=== PATIENT | female | born 1930 | race Caucasian/White ===

== ENCOUNTER 2017-07-01 08:59 | Inpatient (IN) | payer OTHER ==
--- NOTE | 2017-07-01 09:36 | CPEKG ---
Heart Rate: 90 RR Interval: 667 P-R Interval: 156 QRSD Interval: 80 QT Interval: 392 QTC Interval: 480 P [place]: 70 QRS [place]: 21 T Wave [place]: 55 EKG Severity - OTHERWISE NORMAL ECG - EKG Impression: SINUS RHYTHM EKG Impression: LOW VOLTAGE IN FRONTAL LEADS Electronically Signed By: Jesscia Barriga 01-Jul-2017 15:02:57
[2017-07-01 09:39] LABS: PLATELET COUNT 358 10^3/uL (150-400)
--- NOTE | 2017-07-01 09:48 | EDPHY ---
H & P Stated Complaint: POSSIBLE GI BLEED Time Seen by Provider: 07/01/17 09:06 HPI/ROS: CHIEF COMPLAINT: Bloody stool HISTORY OF PRESENT ILLNESS: 87-year-old female with Crohn's disease presents with bright red blood per rectum. This morning she awoke and there was large amount of bloody stool in her bed. She got up to the bathroom, but was incontinent of stool and needed to get back in bed because of dizziness. She called 911 and on their arrival, there was a large amount of blood in her bedroom and bathroom. She was also hypoxic on their arrival, which improved after a duoneb. She denies abdominal pain, vomiting, shortness of breath or chest pain. No prior history of GI hemorrhage. REVIEW OF SYSTEMS: complete 10 point ROS negative except at noted in the HPI - Personal History Current Tetanus Diphtheria and Acellular Pertussis (TDAP): Yes - Medical/Surgical History Hx Asthma: No Hx Chronic Respiratory Disease: No Hx Diabetes: No Hx Cardiac Disease: No Hx Renal Disease: No Hx Cirrhosis: No Hx Alcoholism: No Hx HIV/AIDS: No Hx Splenectomy or Spleen Trauma: No Other PMH: Past medical history: Right hip replacement, Crohn's disease, appy, mode, hyst, cornea replacement - Social History Smoking Status: Light smoker - Physical Exam Exam: General Appearance: Alert, pleasant Eyes: Pupils equal and round, no conjunctival pallor or injection ENT, Mouth: Mucous membranes moist Neck: Normal inspection Respiratory: Lungs are clear to auscultation Cardiovascular: Regular rate and rhythm Gastrointestinal: Abdomen is soft and nontender Rectal: dark red blood present Neurological: A&O, nonfocal, normal gait Skin: Warm and dry Extremities: Normal inspection Psychiatric: Mood and affect normal Constitutional: Initial Vital Signs Temperature (C) 36.9 C 07/01/17 09:13 Heart Rate 90 07/01/17 09:13 Respiratory Rate 18 07/01/17 09:13 Blood Pressure 120/64 07/01/17 09:13 O2 Sat (%) 97 07/01/17 09:13 O2 Delivery Mode Room Air Allergies/Adverse Reactions: clarithromycin [From Biaxin] Allergy (Severe, Verified 07/01/17 09:13) doxycycline Allergy (Severe, Verified 07/01/17 09:13) erythromycin base [Erythromycin Base] Allergy (Severe, Verified 07/01/17 09:13) levofloxacin [From Levaquin] Allergy (Severe, Verified 07/01/17 09:13) metronidazole Allergy (Severe, Verified 07/01/17 09:13) Penicillins Allergy (Severe, Verified 07/01/17 09:13) Quinolones Allergy (Severe, Verified 07/01/17 09:13) Sulfa (Sulfonamide Antibiotics) Allergy (Severe, Verified 07/01/17 09:13) Home Medications: Medication Instructions Recorded Acetaminophen [Tylenol ES 500 mg 1,000 mg PO TID 07/01/17 (*)] Albuterol [Proventil Inhaler HFA 2 puffs IH QID PRN 07/01/17 (*)] Carbidopa/Levo Cr 50/200Mg 0.5 - 1 tab PO DAILY@199907/01/17 [SINEMET CR 50/200 MG (*)] Carbidopa/Levo Cr 50/200Mg 0.5 - 1 tab PO TID PRN 07/01/17 [SINEMET CR 50/200 MG (*)] Multivitamins [Multivitamin (*)] 1 each PO DAILY 07/01/17 Pantoprazole Sodium [Protonix 40mg 40 mg PO BID #60 tab 07/04/17 (*)] Medical Decision Making - Diagnostics EKG Interpretation: EKG interpreted by me reveals normal sinus rhythm, no ST or T segment changes. Interpretation: Normal EKG ED Course/Re-evaluation: This patient presents with GI hemorrhage with an initial hematocrit of 23. Initial vital signs unremarkable. Prior hematocrit 34. Packed red blood cells 1 unit ordered. IV normal saline 500 mL and Protonix 80mg IV given. The hospitalist service was consulted for admission. Dr. Turk consulted and will see the pt. No rectal bleeding/BM while in the ED. Vital signs remained WNL. Old medical records ordered from [facility]. Transported to floor in stable condition. Differential Diagnosis: includes though not limited to upper GI bleed, such as PUD, gastritis, varices; lower GI bleed related to Crohns, diverticulosis, AVM, tumor - Data Points Laboratory Results: Laboratory Results 07/01/17 09:15 07/01/17 09:15 Medications Given: Discontinued Medications Acetaminophen (Tylenol) 650 mg PO Q4HRS PRN PRN Reason: Pain, Mild/Fever, Can Take PO Stop: 12/28/17 15:15 Last Admin: 07/03/17 05:22 Dose: 650 mg Acetaminophen (Tylenol) 1,000 mg PO TID DOMONIQUE Stop: 12/30/17 08:59 Last Admin: 07/04/17 07:50 Dose: 1,000 mg Carbidopa/Levodopa (Sinemet Cr 50/200) 0.5 tab PO DAILY@2000 DOMONIQUE Stop: 12/28/17 19:59 Last Admin: 07/03/17 21:05 Dose: 0.5 tab Carbidopa/Levodopa (Sinemet Cr 50/200) 0.5 tab PO TID PRN PRN Reason: RESTLESS LEG SYMPTOMS Stop: 12/28/17 15:13 Last Admin: 07/04/17 07:12 Dose: 0.5 tab Sodium Chloride (Ns) 500 mls @ 1,000 mls/hr IV EDNOW ONE PRN Reason: Protocol Stop: 07/01/17 10:19 Last Admin: 07/01/17 10:02 Dose: 500 mls Melatonin (Melatonin) 3 - 6 mg PO HS PRN PRN Reason: Sleep/Insomnia Stop: 12/28/17 22:24 Last Admin: 07/03/17 21:06 Dose: 6 mg Miscellaneous Information (Patch Removal) 1 ea TD DAILY21 DOMONIQUE Stop: 12/30/17 20:59 Last Admin: 07/03/17 22:51 Dose: Not Given Miscellaneous Medication (Icy Hot Lidocaine/Menthol 4%/1% Patch) 1 patch TD DAILY DOMONIQUE Stop: 12/30/17 11:14 Last Admin: 07/04/17 11:13 Dose: Not Given Multivitamins (Tab-A-Carolyn) 1 each PO DAILY DOMONIQUE Stop: 12/29/17 08:59 Last Admin: 07/04/17 07:52 Dose: 1 each Ondansetron HCl (Zofran Odt) 4 mg PO Q4HRS PRN PRN Reason: Nausea/Vomiting, Use 1st Stop: 12/28/17 15:15 Last Admin: 07/03/17 06:45 Dose: 4 mg Pantoprazole Sodium (Protonix) 80 mg IVP EDNOW ONE Stop: 07/01/17 09:50 Last Admin: 07/01/17 10:02 Dose: 80 mg Pantoprazole Sodium (Protonix) 40 mg IVP BID DOMONIQUE Stop: 12/29/17 10:14 Last Admin: 07/03/17 08:10 Dose: 40 mg Pantoprazole Sodium (Protonix) 40 mg PO BID DOMONIQUE Stop: 12/30/17 20:59 Last Admin: 07/04/17 07:52 Dose: 40 mg Polyethylene Glycol/Electrolytes (Gavilyte - G) 4,000 ml PO ONCE ONE Stop: 07/01/17 13:45 Last Admin: 07/01/17 14:22 Dose: 4,000 ml Simethicone (Mylicon) 80 mg PO [facility] PRN PRN Reason: Gas Stop: 12/30/17 18:59 Last Admin: 07/03/17 15:14 Dose: 80 mg Departure - Departure Disposition: [facility] Acute Clinical Impression: Severe anemia Gastrointestinal hemorrhage Qualifiers: GI bleed type/associated pathology: melena Qualified Code(s): K92.1 - Melena Condition: Good
[2017-07-01] MEDS ORDERED: PANTOPRAZOLE SODIUM 40 MG VIAL IVP ONE (09:49)
[2017-07-01] MEDS ORDERED: NS 500 ML IV ONE (09:50)
[2017-07-01 11:59] LABS: INR 1.14 (0.83-1.16); PROTIME(PATIENT) 14.8 SEC (12.0-15.0)
--- NOTE | 2017-07-01 12:04 | ASMTCMCOM ---
CM Note CM Note Notes: Pt presented to the ED via EMS from home after having incontinence of stool and large amounts of bright red blood in her stool. Pt admitted for severe anemia, GI hemorrhage. Pt received a transfusion in ED. EMS expressed concerns to the ED RN of pt's ability to return home safely. Pt lives alone in a condo and has a son, Sterling Mcgee ([phone]) who lives in [place]. Sterling is pt's [employer] [employer]. This CM spoke with Sterling over the phone at bedside and provided updated status and plan for admission. Pt also has two daughters but they do not live in [place]. Pt also has a friend, Josephine Ramirez ([phone]), who lives in the condo above her at their building and helps out with patient a lot. Josephine is also very concerned about pt returning home without additional help. Pt states she is normally rather independent in her ADLs; pt uses a walker. Pt has non-skilled home caregivers who stop by on Mondays and Fridays; they provide housekeeping and take pt on errands. Pt can't remember the name of the caregiver agency. Pt has a medical alert necklace that alerts Josephine and Sterling (in addition to calling 911) when pt presses it. Pt states she has not had skilled HC in the past. Pt's PCP is Dr. Arabella Jenkins through [facility]. Pt has a history of Crohns and had a small bowel resection in 2016 w/ [facility] and pt had been discharged to [facility]. Pt states she didn't have a good experience at [facility] and would not want to go back there if a SNF rehab stay is recommended during this admission. Pt's past medical records were obtained from [facility] and [facility] and should be in pt's chart. Exact DC needs unknown at this time. CM to follow. Date Signed: 07/01/2017 12:04 PM Electronically Signed By:Lo Olivas RN
[2017-07-01] MEDS ORDERED: PEG 3350/NA SULF,BICARB,CL/KCL (GAVILYTE-G) 4000 ML BTL PO ONE (13:44)
--- NOTE | 2017-07-01 14:48 | GCON ---
[f rep st] CONSULTATION DATE OF CONSULTATION: 07/01/2017 CHIEF COMPLAINT: GI bleed. HISTORY OF PRESENT ILLNESS: I am asked to see this patient in consultation by Dr. Barriga for chief com plaint of GI bleed. The patient is an 87-year-old with complex past medical history. She is a very poor historian, likely has some underlying dementia, is unclear about all of her past medical history , but family member is also present to provide some information. Apparently she holds the diagnosis of Crohn disease, is unclear if this involves the large or small intestine, but apparently she did u ndergo bowel resection in November 2016 that apparently involved her ileum and 10 cm of intestine, but she is not sure if it was small or large bowel. 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 It is unclear if this was resected for cure; however, there is apparently no other further treatment going on. Patient does have baseline diarrhea, about 1 loose stool morning, which she will occasionally take Imodium. She is unaware of any blood in her stools or black stools. No significa nt abdominal pain, but this morning she awoken and was incontinent of large amount of stool. She kuldeep led 911. They state that the stool looked bloody; however, it is unclear if this was bright red bloo d or black stools as no witnesses were present. The patient denies nausea, vomiting, hematemesis. H as no known history of prior peptic ulcer disease; however, she was admitted in 2012 here at [facility] with a GI bleed. She underwent an upper and lower endoscopy. Upper endoscopy was apparently normal. Colonoscopy revealed diverticula which was presumably source of her bleeding. ALLERGIES: Patient reports allergies to erythromycin, doxycycline, Levaquin, metronidazole, penicil christopher, quinolones, sulfa. MEDICATIONS: Active medications, incomplete list, but patient apparently takes Sinemet, albuterol in halers, Tylenol, multivitamins, unclear if she takes any other additional medicines. PAST MEDICAL HISTORY: 1. Crohn disease, but unclear if this involves large or small intestine. 2. 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 3. Other past medical history is incomplete as patient is poor historian. FAMILY HISTORY: Patient denies family history of Crohn's or colon cancer. SOCIAL HISTORY: She denies alcohol use. REVIEW OF SYSTEMS: I have performed a complete review of systems which is negative except for the pe rtinent positives and negatives noted above in HPI. PHYSICAL EXAM: VITAL SIGNS: Afebrile at 36.9, BP 108/57, pulse 90. GENERAL: She is alert and orie nted. EYES: No scleral icterus. HEENT: No oral lesions. CARDIOVASCULAR: Regular rate and rhythm . CHEST: Clear to auscultation. ABDOMEN: Increased bowel sounds, slightly distended, but soft abdo men without rebound. No masses. Nontender. NEUROLOGICAL: Nonfocal. SKIN: No rashes. LABORATORY DATA: Shows a BUN of 31 with creatinine of 0.8, hematocrit is 23.7 with hemoglobin of 7.3 , white count 11, and platelets are normal. Prothrombin time is normal. ASSESSMENT: Patient with gastrointestinal bleed, although difficult to assess if this is an upper or lower bleed. However, I would be more suspicious for this being a lower GI bleed. Concerns being f or her history of Crohn disease and recent resection. It could be anastomotic ulcer versus active Cr ohn disease or cancer. Also, consider diverticular bleed given her last colonoscopy. Would give cons ideration to a possible upper GI bleed, although I think less likely. Patient is currently hemodynam ically stable although overall would be high risk for endoscopic procedures given her advanced age an d medication use. I have discussed with the patient and her daughter about risks and benefits of an upper and lower endoscopy to try to identify the source of bleeding, possible treatment versus conser vative measures with IV fluids, transfusion and to monitor. Patient has decided to proceed with endo scopic evaluation. PLAN: 1. Will try to obtain records from [place]. 2. Will prep for upper and lower endoscopy in the morning, aim to do this with anesthesia. 3. Transfuse and to monitor. May need to consider urgent evaluation if her clinical status should c hange. . /[id number]/MODL
[2017-07-01] MEDS ORDERED: ONDANSETRON 4 MG/2 ML VIAL IVP PRN (15:16)
[2017-07-01] MEDS ORDERED: ONDANSETRON DISINTEGRATING 4 MG TAB PO PRN (15:16)
--- NOTE | 2017-07-01 15:41 | PDGENHP ---
History and Physical - Chief Complaint BLOOD STOOL - History of Present Illness 87-year-old female with Crohn's disease presents with bright red blood per rectum. This morning she awoke and there was large amount of bloody stool in her bed. She got up to the bathroom, but was incontinent of stool and needed to get back in bed because of dizziness. She called 911 and on their arrival, there was a large amount of blood in her bedroom. She was also hypoxic on their arrival. DuoNeb given with relief in hypoxia. She denies abdominal pain , vomiting, shortness of breath or chest pain. No prior history of GI hemorrhage. Denies abd pain, n/v/d, cp, sob Vital signs are reassuring PMH/PSH: Right hip replacement, Crohn's disease, appy, mode, hyst, cornea replacement SocHx: Daily ETOH, daily Tobacco FmHx: NC Hgb: 7.3 History Information - Allergies/Home Medication List Allergies/Adverse Reactions: clarithromycin [From Biaxin] Allergy (Severe, Verified 07/01/17 09:13) doxycycline Allergy (Severe, Verified 07/01/17 09:13) erythromycin base [Erythromycin Base] Allergy (Severe, Verified 07/01/17 09:13) levofloxacin [From Levaquin] Allergy (Severe, Verified 07/01/17 09:13) metronidazole Allergy (Severe, Verified 07/01/17 09:13) Penicillins Allergy (Severe, Verified 07/01/17 09:13) Quinolones Allergy (Severe, Verified 07/01/17 09:13) Sulfa (Sulfonamide Antibiotics) Allergy (Severe, Verified 07/01/17 09:13) Home Medications: Acetaminophen [Tylenol ES 500 mg (*)] 1,000 mg PO TID 07/01/17 [Last Taken Unknown] Albuterol [Proventil Inhaler HFA (*)] 2 puffs IH QID PRN 07/01/17 [Last Taken Unknown] Carbidopa/Levo Cr 50/200Mg [SINEMET CR 50/200 MG (*)] 0.5 - 1 tab PO DAILY@199907/01/17 [Last Taken Unknown] Carbidopa/Levo Cr 50/200Mg [SINEMET CR 50/200 MG (*)] 0.5 - 1 tab PO TID PRN [Last Taken Unknown] Multivitamins [Multivitamin (*)] 1 each PO DAILY 07/01/17 [Last Taken Unknown] I have personally reviewed and updated: medical history, social history - Social History Smoking Status: Light smoker Review of Systems Review of Systems: ROS: 10pt was reviewed & negative except for what was stated in HPI & below Physical Exam Physical Exam: Temp Pulse Resp BP Pulse Ox 36.8 C 89 16 142/84 H 94 07/01/17 15:10 07/01/17 15:10 07/01/17 15:10 07/01/17 15:10 07/01/17 15:10 Constitutional: no apparent distress Eyes: PERRL, EOMI Ears, Nose, Mouth, Throat: moist mucous membranes, hearing normal Cardiovascular: regular rate and rhythym, No edema Respiratory: no respiratory distress, no rales or rhonchi, clear to auscultation Gastrointestinal: normoactive bowel sounds Genitourinary: no bladder fullness Skin: warm Musculoskeletal: full muscle strength Neurologic: AAOx3 Psychiatric: interacting appropriately, not anxious, not encephalopathic Lymph, Heme, Immunologic: petechiae Lab Data & Imaging Review 07/01/17 09:15 07/01/17 09:15 WBC 11.29 10^3/uL (3.80-9.50) H 07/01/17 09:15 RBC 2.41 10^6/uL (4.18-5.33) L 07/01/17 09:15 Hgb 7.3 g/dL (12.6-16.3) L 07/01/17 09:15 Hct 23.7 % (38.0-47.0) L 07/01/17 09:15 MCV 98.3 fL (81.5-99.8) 07/01/17 09:15 MCH 30.3 pg (27.9-34.1) 07/01/17 09:15 MCHC 30.8 g/dL (32.4-36.7) L 07/01/17 09:15 RDW 15.8 % (11.5-15.2) H 07/01/17 09:15 Plt Count 358 10^3/uL (150-400) 07/01/17 09:15 MPV 9.2 fL (8.7-11.7) 07/01/17 09:15 Neut % (Auto) 89.4 % (39.3-74.2) H 07/01/17 09:15 Lymph % (Auto) 5.6 % (15.0-45.0) L 07/01/17 09:15 [place] % (Auto) 4.0 % (4.5-13.0) L 07/01/17 09:15 Eos % (Auto) 0.3 % (0.6-7.6) L 07/01/17 09:15 Baso % (Auto) 0.3 % (0.3-1.7) 07/01/17 09:15 Nucleat RBC Rel Count 0.0 % (0.0-0.2) 07/01/17 09:15 Absolute Neuts (auto) 10.11 10^3/uL (1.70-6.50) H 07/01/17 09:15 Absolute Lymphs (auto) 0.63 10^3/uL (1.00-3.00) L 07/01/17 09:15 Absolute Monos (auto) 0.45 10^3/uL (0.30-0.80) 07/01/17 09:15 Absolute Eos (auto) 0.03 10^3/uL (0.03-0.40) 07/01/17 09:15 Absolute Basos (auto) 0.03 10^3/uL (0.02-0.10) 07/01/17 09:15 Absolute Nucleated RBC 0.00 10^3/uL (0-0.01) 07/01/17 09:15 Immature Gran % 0.4 % (0.0-1.1) 07/01/17 09:15 Immature Gran # 0.04 10^3/uL (0.00-0.10) 07/01/17 09:15 PT 14.8 SEC (12.0-15.0) 07/01/17 09:30 INR 1.14 (0.83-1.16) 07/01/17 09:30 APTT 33.1 SEC (23.0-38.0) 07/01/17 09:30 Sodium 139 mEq/L (135-145) 07/01/17 09:15 Potassium 4.7 mEq/L (3.3-5.0) 07/01/17 09:15 Chloride 101 mEq/L (97-110) 07/01/17 09:15 Carbon Dioxide 30 mEq/l (22-31) 07/01/17 09:15 Anion Gap 8 mEq/L (8-16) 07/01/17 09:15 BUN 31 mg/dL (7-23) H 07/01/17 09:15 Creatinine 0.6 mg/dL (0.6-1.0) 07/01/17 09:15 Estimated GFR > 60 07/01/17 09:15 Glucose 73 mg/dL (70-100) 07/01/17 09:15 Calcium 8.1 mg/dL (8.5-10.4) L 07/01/17 09:15 Stool Occult Bld Scrn POSITIVE (NEGATIVE) H 07/01/17 09:40 Patient ABO/Rh A POSITIVE 07/01/17 09:15 Antibody Screen NEGATIVE 07/01/17 09:15 Crossmatch IS Only See Detail 07/01/17 09:15 Assessment & Plan Assessment: Gastrointestinal hemorrhage ABLA due to GIB Hypoxemia, resolved Plan: admit PRBC transfusion PPI upper and lower endoscopy tomorrow CLD for now, NPO at midnight GI is following SCD's
[2017-07-01] MEDS ORDERED: ALBUTEROL 3 ML DEYVIAL IH PRN (15:43)
[2017-07-01] MEDS: ACETAMINOPHEN 325 MG TAB PO PRN ×2 (17:00→22:30)
--- NOTE | 2017-07-01 17:02 | PDMN ---
Medical Necessity Medical necessity: C/M review: Patient meets INPT criteria under M-180 Gastrointestinal Bleeding, Upper, M-182 Gastrointestinal Bleeding, Lower: Acute gastrointestinal hemorrhage, patient presents with bright red blood per rectum, anemia blood loss due to GI bleed, hypoxemia-resolved, WBC 11.29, Hgb 7.3, Hct 23.7, stool occult blood positive, requiring IV Protonix in ED, GI consult, 1 unit PRBCs this far, planned 07/02/2017 upper and lower endoscopy, ongoing pulse oximetry, close monitoring, CBC monitoring, comorbid patient awoke and there was a large amount of bloody stool in patient's bed, patient got up to bathroom, was incontinent of stool, there was a large amount of blood in patient bedroom upon EMS arrival at patient's home just prior to this admission, history of Chron's disease, daily tobacco use, daily alcohol use, MD anticipates > 2 MN LOS for ongoing med nec for eval ad TX of above. Patient is Medicare Advantage which follows guidelines CMS puts forth.
[2017-07-01] MEDS: CARBIDOPA/LEVO CR 50 MG/200 MG TAB PO SCH (19:51)
[2017-07-01] MEDS: MELATONIN 3 MG TAB PO PRN (22:30)
[2017-07-02 06:08] LABS: PLATELET COUNT 273 10^3/uL (150-400)
[2017-07-02] MEDS: MULTIVITAMINS 1 EACH TAB PO SCH (07:48)
--- NOTE | 2017-07-02 08:12 | HOSPPROG ---
Hospitalist Progress Note Assessment/Plan: 87F PMH Crohn's disease, current tobacco abuse, previous colon CA s/p resection , presented to ED for large volume blood stools. Upon arrival of EMS, she was found to be hypoxemic. 1st encounter with patient. Chart reviewed. #. GIB: prepped for upper and lower endoscopy today - results pending #. ABLA: 1 unit thus far transfused will order another unit as HB is 6.7 today #. ? Parkinson - patient denies though she takes Sinemet #. tobacco abuse - will provide nicotine replacement as needed #. hypoxemia: satting OK currently on RA #. Diet: clear liquid and ADAT #. Inpt status for acute GIB with risk of recurrence and need for transfusion. Awaiting PT/OT evals. Objective: Vital Signs Temp Pulse Resp BP Pulse Ox 98.1 F 79 14 143/78 H 95 07/02/17 04:00 07/02/17 04:00 07/02/17 04:00 07/02/17 04:00 07/02/17 04:00 Laboratory Results 07/02/17 04:13 07/02/17 04:13 07/01/17 07/02/17 07/03/17 05:59 05:59 05:59 Intake Total 1000 Balance 1000 PT 14.8 SEC (12.0-15.0) 07/01/17 09:30 INR 1.14 (0.83-1.16) 07/01/17 09:30 - Physical Exam Constitutional: no apparent distress, appears nourished Eyes: anicteric sclera Cardiovascular: regular rate and rhythym, no murmur, rub, or gallop Respiratory: no respiratory distress Gastrointestinal: normoactive bowel sounds, soft, non-tender abdomen Genitourinary: No quinteros in urethra Skin: warm, normal color Neurologic: AAOx3 Psychiatric: interacting appropriately ICD10 Worksheet Patient Problems: Problems Problem Status Onset Gastrointestinal hemorrhage Acute Severe anemia Acute Anemia Active Hyponatremia Active Lower gastrointestinal hemorrhage Active Periprosthetic fracture around internal prosthetic right hip joint Acute
[2017-07-02] MEDS ORDERED: EPINEPHrine 1 MG/ML INJ ONE (08:54)
--- NOTE | 2017-07-02 09:07 | PDANEPAE ---
ANE History of Present Illness BRBPR ANE Past Medical History - Cardiovascular History Hx Hypertension: No Hx Arrhythmias: No Hx Chest Pain: No Hx Coronary Artery / Peripheral Vascular Disease: No Hx CHF / Valvular Disease: No Hx Palpitations: No - Pulmonary History Hx COPD: No Hx Asthma/Reactive Airway Disease: No Hx Recent Upper Respiratory Infection: No Hx Oxygen in Use at Home: No Hx Sleep Apnea: No Sleep Apnea Screening Result - Last Documented: Negative Pulmonary History Comment: tobacco abuse - Endocrine History Hx Diabetes: No Hypothyroid: No Hyperthyroid: No - Renal History Hx Renal Disorders: No - Liver History Hx Hepatic Disorders: No - Neurological & Psychiatric Hx Neurological / Psychiatric History Comment: parkinsons - Chronic Pain History Chronic Pain: No ANE Review of Systems Review of systems is: negative Review of Systems: - Exercise capacity Exercise capacity: >=4 METS ANE Patient History - Allergies Allergies/Adverse Reactions: clarithromycin [From Biaxin] Allergy (Severe, Verified 07/01/17 09:13) doxycycline Allergy (Severe, Verified 07/01/17 09:13) erythromycin base [Erythromycin Base] Allergy (Severe, Verified 07/01/17 09:13) levofloxacin [From Levaquin] Allergy (Severe, Verified 07/01/17 09:13) metronidazole Allergy (Severe, Verified 07/01/17 09:13) Penicillins Allergy (Severe, Verified 07/01/17 09:13) Quinolones Allergy (Severe, Verified 07/01/17 09:13) Sulfa (Sulfonamide Antibiotics) Allergy (Severe, Verified 07/01/17 09:13) - Home Medications Home Medications: Acetaminophen [Tylenol ES 500 mg (*)] 1,000 mg PO TID 07/01/17 [Last Taken Unknown] Albuterol [Proventil Inhaler HFA (*)] 2 puffs IH QID PRN 07/01/17 [Last Taken Unknown] Carbidopa/Levo Cr 50/200Mg [SINEMET CR 50/200 MG (*)] 0.5 - 1 tab PO DAILY@199907/01/17 [Last Taken Unknown] Carbidopa/Levo Cr 50/200Mg [SINEMET CR 50/200 MG (*)] 0.5 - 1 tab PO TID PRN [Last Taken Unknown] Multivitamins [Multivitamin (*)] 1 each PO DAILY 07/01/17 [Last Taken Unknown] - NPO status NPO Status: no food or drink >8 hours NPO Since - Liquids (Date): 07/02/17 NPO Since - Liquids (Time): 00:00 NPO Since - Solids (Date): 06/30/17 NPO Since - Solids (Time): 12:00 - Anes Hx Anes Hx: no prior problems - Smoking Hx Smoking Status: Light smoker Marijuana use: No - Alcohol Use Alcohol Use: None - Family Anes Hx Family Anes Hx: none ANE Labs/Vital Signs - Labs Result Diagrams: 07/02/17 04:13 07/02/17 04:13 - Vital Signs Blood Pressure: 143/76 Heart Rate: 80 Respiratory Rate: 16 O2 Sat (%): 90 Height: 162.56 cm Weight: 49.895 kg ANE Physical Exam - Airway Neck exam: decreased ROM Mallampati Score: Class 2 Mouth exam: normal dental/mouth exam - Pulmonary Pulmonary: no respiratory distress - Cardiovascular Cardiovascular: regular rate and rhythym - ASA Status ASA Status: III ANE Anesthesia Plan Anesthesia Plan: GA with mask
[2017-07-02] MEDS ORDERED: PROPOFOL/EMULSION 500 MG/50 ML BOTTLE IV ONE (09:10)
[2017-07-02] MEDS ORDERED: LIDOCAINE 2% 5 ML SDV ONE (09:10)
[2017-07-02] MEDS ORDERED: ALBUTEROL 3 ML DEYVIAL IH PRN (09:51)
[2017-07-02] MEDS ORDERED: NALOXONE HCL 0.4 MG/ML INJ IVP PRN (09:51)
[2017-07-02] MEDS ORDERED: ONDANSETRON 4 MG/2 ML VIAL IVP PRN (09:51)
--- NOTE | 2017-07-02 09:52 | POSTANESTH ---
Post Anesthetic Evaluation Cardiovascular Status: Similar to Pre-Op Cond Respiratory Status: Normal, Stable Level of Consciousness/Mental Status: Mildly Sleepy, Arousable Pain Control: Adequate, Prn Tx Ordered Nausea/Vomiting Control: Adequate, Prn Tx Ordered Complications Possibly Related to Anesthesia: None Noted
[2017-07-02] MEDS: PANTOPRAZOLE SODIUM 40 MG VIAL IVP SCH ×2 (10:35→20:35)
[2017-07-02] MEDS: ACETAMINOPHEN 325 MG TAB PO PRN ×3 (10:36→21:30)
[2017-07-02] MEDS: CARBIDOPA/LEVO CR 50 MG/200 MG TAB PO SCH (20:28)
[2017-07-02] MEDS: MELATONIN 3 MG TAB PO PRN (21:33)
[2017-07-02] MEDS: CARBIDOPA/LEVO CR 50 MG/200 MG TAB PO PRN (21:33)
[2017-07-03] MEDS: CARBIDOPA/LEVO CR 50 MG/200 MG TAB PO PRN ×3 (04:18→17:23)
[2017-07-03 04:48] LABS: PLATELET COUNT 241 10^3/uL (150-400)
[2017-07-03] MEDS: ACETAMINOPHEN 325 MG TAB PO PRN (05:22)
[2017-07-03] MEDS: PANTOPRAZOLE SODIUM 40 MG VIAL IVP SCH (08:10)
--- NOTE | 2017-07-03 08:20 | SOAPPROG ---
SOAP Progress Note Assessment/Plan: Assessment: 1. GIB from atypical gastric ulcer. H. pylori negative. No e/o rebleeding 2. Diarrhea baseline suspect from partial colectomy no active Crohn's disease seen 3. Abd pain suspect chronic pain. Rec monitor to assure no rebleeding Plan: Monitor H+H until stable PPI IV for now can change to Po PPI BID once taking POs well No NSAIDS Consider GI cocktail for pain If e/o rebleeding consider IR embolization as ulcer would not be easily amenable to endoscopic treatment Consider CT scan of abd if pain not better 07/03/17 08:16 Subjective: CC melena Pt now with normal bm no blood no melena She c/o nausea and abd pain. Pt has h/o abd pain unclear if this is new pain or baseline symptoms Objective: Vital Signs Temp Pulse Resp BP Pulse Ox 36.7 C 71 15 152/81 H 91 L 07/03/17 07:40 07/03/17 07:40 07/03/17 07:40 07/03/17 07:40 07/03/17 07:40 Laboratory Results 07/03/17 04:25 07/02/17 04:13 07/02/17 07/03/17 07/04/17 05:59 05:59 05:59 Intake Total 1000 1075 Balance 1000 1075 PT 14.8 SEC (12.0-15.0) 07/01/17 09:30 INR 1.14 (0.83-1.16) 07/01/17 09:30 ICD10 Worksheet Patient Problems: Problems Problem Status Onset Lower gastrointestinal hemorrhage Active Hyponatremia Active Anemia Active Periprosthetic fracture around internal prosthetic right hip joint Acute Gastrointestinal hemorrhage Acute Severe anemia Acute
[2017-07-03] MEDS ORDERED: ALBUTEROL 60 PUFFS/8 GM MDI IH PRN (08:35)
[2017-07-03] MEDS: MULTIVITAMINS 1 EACH TAB PO SCH (09:33)
[2017-07-03] MEDS: ACETAMINOPHEN 500 MG TAB PO SCH ×3 (10:42→21:05)
[2017-07-03] MEDS: LIDOCAINE 4%/MENTHOL 1% PATCH TD SCH ×2 (11:07→14:43)
--- NOTE | 2017-07-03 13:19 | HOSPPROG ---
Hospitalist Progress Note Assessment/Plan: 87F PMH Crohn's disease, current tobacco abuse, previous colon CA s/p resection , presented to ED for large volume blood stools. Upon arrival of EMS, she was found to be hypoxemic. 1st encounter with patient. Chart reviewed. #. GIB: upper and lower endoscopy performed - atypical gastric ulcer noted - no further signs of bleeding #. ABLA: -2 unit thus far transfused -h/h stable #. ? Parkinson - patient denies though she takes Sinemet #Abd pain -per pt same as chronic gas pain -watch, will get CT if worse #. tobacco abuse - will provide nicotine replacement as needed #. hypoxemia: satting OK currently on RA #. Diet: regular #. Inpt status for acute GIB with risk of recurrence and need for transfusion. -cont PT/OT -monitor overnight -watch for reoccurring bleeding Subjective: Up in chair. Wants to go home. Feels well. Family at bedside. Objective: Vital Signs Temp Pulse Resp BP Pulse Ox 36.7 C 77 16 101/77 90 L 07/03/17 11:00 07/03/17 11:00 07/03/17 11:00 07/03/17 11:00 07/03/17 11:00 Laboratory Results 07/03/17 04:25 07/02/17 04:13 07/02/17 07/03/17 07/04/17 05:59 05:59 05:59 Intake Total 1000 1075 Balance 1000 1075 PT 14.8 SEC (12.0-15.0) 07/01/17 09:30 INR 1.14 (0.83-1.16) 07/01/17 09:30 - Physical Exam Constitutional: chronically ill appearing, uncomfortable, cachectic Eyes: PERRL, anicteric sclera, EOMI Ears, Nose, Mouth, Throat: moist mucous membranes, hearing normal, ears appear normal Cardiovascular: regular rate and rhythym, No JVD, No edema Respiratory: no respiratory distress, no rales or rhonchi, reduced air movement Gastrointestinal: normoactive bowel sounds, tenderness, No ascites, No guarding Skin: warm, normal color, No mottled Musculoskeletal: normal joint ROM, no joint effusions, generalized weakness Neurologic: AAOx3 Psychiatric: not anxious, not encephalopathic, poor insight, poor memory ICD10 Worksheet Patient Problems: Problems Problem Status Onset Lower gastrointestinal hemorrhage Active Hyponatremia Active Anemia Active Periprosthetic fracture around internal prosthetic right hip joint Acute Gastrointestinal hemorrhage Acute Severe anemia Acute
[2017-07-03] MEDS ORDERED: SIMETHICONE 80 MG TAB CHEW PO PRN (14:51)
--- NOTE | 2017-07-03 16:54 | ASMTCMCOM ---
CM Note CM Note Notes: PT is recommending home vs home care at d/c. Pt still complaining of nausea and abdominal pain. CM will follow for d/c needs. Date Signed: 07/03/2017 04:54 PM Electronically Signed By:LEONEL Orellana
[2017-07-03] MEDS ORDERED: PATCH REMOVAL 1 EA PATCH TD SCH (21:00)
[2017-07-03] MEDS: CARBIDOPA/LEVO CR 50 MG/200 MG TAB PO SCH (21:05)
[2017-07-03] MEDS: MELATONIN 3 MG TAB PO PRN (21:06)
[2017-07-03] MEDS: PANTOPRAZOLE SODIUM 40 MG TAB PO SCH (21:06)
[2017-07-04] MEDS: CARBIDOPA/LEVO CR 50 MG/200 MG TAB PO PRN (07:12)
[2017-07-04 07:26] VITALS: BP 136/72
[2017-07-04] MEDS: ACETAMINOPHEN 500 MG TAB PO SCH (07:50)
[2017-07-04] MEDS: PANTOPRAZOLE SODIUM 40 MG TAB PO SCH (07:52)
[2017-07-04] MEDS: MULTIVITAMINS 1 EACH TAB PO SCH (07:52)
--- NOTE | 2017-07-04 10:18 | SOAPPROG ---
[facility] Progress Note Assessment/Plan: Assessment: 1. GIB from atypical gastric ulcer. H. pylori negative. No e/o rebleeding 2. Abd pain has resolved and stools are back to baseline. Plan: OK to d/c home PPI daily for 12 weeks Await biopsy results Patient should follow up with primary doctors at [place] Will sign off 07/04/17 10:15 Subjective: cc gi bleed No further bleeding abd hicks has resolved Objective: Vital Signs Temp Pulse Resp BP Pulse Ox 36.7 C 91 14 136/72 H 90 L 07/04/17 07:17 07/04/17 07:17 07/04/17 07:17 07/04/17 07:17 07/04/17 07:17 Laboratory Results 07/04/17 09:13 07/02/17 04:13 07/03/17 07/04/17 07/05/17 05:59 05:59 05:59 Intake Total 1075 950 Balance 1075 950 PT 14.8 SEC (12.0-15.0) 07/01/17 09:30 INR 1.14 (0.83-1.16) 07/01/17 09:30 Physical Exam - Physical Exam General Appearance: alert Respiratory: lungs clear Cardiac/Chest: regular rate, rhythm Abdomen: non-tender, soft ICD10 Worksheet Patient Problems: Problems Problem Status Onset Gastrointestinal hemorrhage Acute Severe anemia Acute Anemia Active Hyponatremia Active Lower gastrointestinal hemorrhage Active Periprosthetic fracture around internal prosthetic right hip joint Acute
[2017-07-04] MEDS: LIDOCAINE 4%/MENTHOL 1% PATCH TD SCH (11:13)
--- NOTE | 2017-07-04 12:15 | ASMTCMCOM ---
CM Note CM Note Notes: Pt medically stable for d/c with son support. Pt declines HHC. No CM d/c needs identified. Date Signed: 07/04/2017 12:14 PM Electronically Signed By:LEONEL Wayne
--- NOTE | 2017-07-04 12:15 | GDS ---
[f rep st] DISCHARGE SUMMARY DISCHARGE DIAGNOSES: 1. Gastrointestinal bleed from atypical gastric ulcer. 2. Abdominal pain. 3. Acute blood loss anemia requiring transfusion. 4. Tobacco abuse. PHYSICAL EXAMINATION: GENERAL: The patient is alert. VITAL SIGNS: Afebrile at 36.7, pulse 91, res piratory rate 14, blood pressure is 136/72. She is saturating 90% on room air. I have seen and eval uated the patient on the day of discharge. HOSPITAL COURSE: The patient is an 87-year-old female who presented to the emergency room with blood y stool. She was evaluated and diagnosed with: 1. Gastrointestinal bleed. During this hospitalization, she received a consultation from [facility]. Upper and lower endoscopy were performed, noting an atypical gastric ulcer. She has been st arted on Protonix for this and will continue this for a 12 week course in the outpatient setting, wit h followup of biopsy results with her primary care physician. She has had no further signs of bleedi ng. 2. Acute blood loss anemia. This is in the setting of a gastrointestinal ulcer. She has received 2 units of packed red blood cells during this hospital course and her H and H is stable. 3. Abdominal pain. This is chronic for the patient and is at her baseline. 4. Tobacco abuse. Cessation has been educated. DISPOSITION: The patient will be discharged home independently. Followup will be with her physician at [facility]. PENDING STUDIES: Include biopsies done during endoscopy. DISCHARGE MEDICATIONS: Please refer to EMR form. I have not adjusted the patient's previously presc ribed home medications; however, she has been initiated on Protonix 40 mg twice daily. FOLLOWUP: Will be with Dr. Turk, as well as the patient's primary care physician. I spent greater than 35 minutes in the care, coordination, and management of the patient's dispositio n. /[id number]/MODL
--- NOTE | 2017-07-07 09:56 | GIREPORT ---
[facility] - Endoscopy Department Patient Name: Kiya Pradhan Procedure Date: 07/02/2017 9:27 AM Patient Type: Inpatient Attending MD/ ER Physician: Shell Turk MD Procedure: Colonoscopy Indications: Melena Providers: Shell Turk MD Medicines: Monitored Anesthesia Care Complications: No immediate complications. Description of Procedure: After obtaining informed consent, the scope was passed under direct vis ion. Throughout the procedure, the patient's blood pressure, pulse, and oxyg en saturations were monitored continuously. The Colonoscope with irrigatio n channel was introduced through the anus and advanced to the ileocolonic anastomosis. The colonoscopy was performed with ease. The patient blanca ated the procedure well. The quality of the bowel preparation was adequate. The terminal ileum and the rectum were photographed. Findings: The perianal and digital rectal examinations were normal. Many diverticula were found in the sigmoid colon. There was evidence of a prior end-to-side ileo-colonic anastomosis in t he ascending colon. This was patent and was characterized by healthy appea ring mucosa. Estimated Blood Loss: Estimated blood loss: none. Post Op Diagnosis: - Diverticulosis in the sigmoid colon. - No old blood no active bleeding. - Patent end-to-side ileo-colonic anastomosis, characterized by healthy appearing mucosa. - No specimens collected. Recommendation: - Clear liquid diet. - Return patient to hospital solo for ongoing care. - No repeat colonoscopy due to age. - Thank you for allowing me to participate in the care of your patient. Attending Participation: I personally performed the entire procedure. Shell Turk MD Shell Turk MD 07/02/2017 9:50:18 AM This report has been signed electronicallyShell Turk MD Number of Addenda: 0 Note Initiated On: 07/02/2017 9:27 AM Total Procedure Duration Time 0 hours 6 minutes 19 seconds [email or web address]
--- NOTE | 2017-07-07 09:56 | GIREPORT ---
[facility] - Endoscopy Department Patient Name: Kiya Pradhan Procedure Date: 07/02/2017 8:10 AM Patient Type: Inpatient Attending MD/ ER Physician: Shell Turk MD Procedure: Upper GI endoscopy Indications: Melena Providers: Shell Turk MD Medicines: Monitored Anesthesia Care Complications: No immediate complications. Description of Procedure: After obtaining informed consent, the endoscope was passed under direct vision. Throughout the procedure, the patient's blood pressure, pulse, and oxygen saturations were monitored continuously. The Endoscope was intro duced through the mouth, and advanced to the second part of duodenum. The Endoscope was introduced through the mouth, and advanced to the. The up per GI endoscopy was accomplished without difficulty. The patient tolerated the procedure well. Findings: The esophagus was normal. One non-bleeding cratered gastric ulcer with adherent clot was found in the gastric fundus. The lesion was 15 mm in largest dimension. Biopsies wer e taken with a cold forceps for histology. Estimated blood loss was minim al. A few, non-bleeding erosions were found in the gastric antrum. There we re no stigmata of recent bleeding. The examined duodenum was normal. Estimated Blood Loss: Estimated blood loss was minimal. Post Op Diagnosis: - Normal esophagus. - Non-bleeding gastric ulcer with adherent clot. Biopsied. Ulcer had atypical appearance and is present in unusual location worrisome as pat ient has h/o ilium cancer. Not amenable for endoscopic treatment. - Non-bleeding erosive gastropathy. - Normal examined duodenum. Recommendation: - Await pathology results. - Clear liquid diet. - PPI BID fro 8 weeks. - Monitor H+H and transfuse as needed. - Check H. pylori serology. - Consider IR with embolisation if rebleeding if patient desires aggres sive treatment. - Consider repeat EGD in 3 months with her primary GI doctors at [place] to check heeling if biopsy are benign. - Return patient to hospital solo for ongoing care. - Thank you for allowing me to participate in the care of your patient. Attending Participation: I personally performed the entire procedure. Shell Turk MD Shell Turk MD 07/02/2017 9:50:36 AM This report has been signed electronicallyShell Turk MD Number of Addenda: 0 Note Initiated On: 07/02/2017 8:10 AM Total Procedure Duration Time 0 hours 8 minutes 38 seconds [email or web address]
== END 2017-07-04 12:17 | disposition home or self-care (01) | DRG 378 ==
LOC: EDBD → EDUNIT# → F3N 11:45
PROVIDERS: ADMIT Internal Medicine; ATTEND Internal Medicine
DX: K28.4 Chronic or unspecified gastrojejunal ulcer with hemorrhage (principal); K57.30 Diverticulosis of large intestine without perforation or abscess without bleeding; D62 Acute posthemorrhagic anemia; Z96.641 Presence of right artificial hip joint; F17.210 Nicotine dependence, cigarettes, uncomplicated
CPT/HCPCS: 96374; 97161-GP; J0171; J2405; J2704; P9016

== ENCOUNTER 2017-08-30 15:45 | Emergency (ER) | payer OTHER ==
[2017-08-30 16:19] LABS: PLATELET COUNT 252 10^3/uL (150-400)
--- NOTE | 2017-08-30 16:28 | EDPHY ---
H & P Stated Complaint: unresponsive for EMS now alert. Time Seen by Provider: 08/30/17 15:55 HPI/ROS: CHIEF COMPLAINT: Unresponsive prior to arrival HISTORY OF PRESENT ILLNESS: 87-year-old female with Crohn's disease presents after an episode of unresponsiveness. She laid down to take her usual nap this afternoon. A neighbor checked on her later this afternoon and could not wake her. EMS was called and they were unable to arouse her initially. She awoke eventually and did not want to be transported to the emergency department. She feels normal and has no complaints. She thinks that she simply was sound asleep. No new medications. REVIEW OF SYSTEMS: complete 10 point ROS negative except at noted in the HPI - Personal History Current Tetanus/Diphtheria Vaccine: Yes Current Tetanus Diphtheria and Acellular Pertussis (TDAP): Yes - Medical/Surgical History Hx Asthma: No Hx Chronic Respiratory Disease: No Hx Diabetes: No Hx Cardiac Disease: No Hx Renal Disease: No Hx Cirrhosis: No Hx Alcoholism: No Hx HIV/AIDS: No Hx Splenectomy or Spleen Trauma: No Other PMH: Past medical history: Right hip replacement, Crohn's disease, appy, mode, hyst, cornea replacement - Social History Smoking Status: Light smoker Alcohol Use: Occasionally Drug Use: None - Physical Exam Exam: General Appearance: Alert, pleasant Eyes: Pupils equal and round, no conjunctival pallor or injection ENT, Mouth: Mucous membranes moist Neck: Normal inspection Respiratory: Lungs are clear to auscultation Cardiovascular: Regular rate and rhythm Gastrointestinal: Abdomen is soft and nontender Neurological: Alert, oriented x3, cranial nerves II through XII intact, motor 5 /5, sensory intact to light touch Skin: Warm and dry Extremities: Nontender, no pedal edema Psychiatric: Mood and affect normal Constitutional: Initial Vital Signs Temperature (C) 36.8 C 08/30/17 15:53 Heart Rate 82 08/30/17 15:53 Respiratory Rate 18 08/30/17 15:53 Blood Pressure 144/88 H 08/30/17 15:53 O2 Sat (%) 94 08/30/17 15:53 O2 Delivery Mode Room Air Allergies/Adverse Reactions: clarithromycin [From Biaxin] Allergy (Severe, Verified 07/01/17 09:13) doxycycline Allergy (Severe, Verified 07/01/17 09:13) erythromycin base [Erythromycin Base] Allergy (Severe, Verified 07/01/17 09:13) levofloxacin [From Levaquin] Allergy (Severe, Verified 07/01/17 09:13) metronidazole Allergy (Severe, Verified 07/01/17 09:13) Penicillins Allergy (Severe, Verified 07/01/17 09:13) Quinolones Allergy (Severe, Verified 07/01/17 09:13) Sulfa (Sulfonamide Antibiotics) Allergy (Severe, Verified 07/01/17 09:13) Home Medications: Medication Instructions Recorded Acetaminophen [Tylenol ES 500 mg 1,000 mg PO TID 07/01/17 (*)] Albuterol [Proventil Inhaler HFA 2 puffs IH QID PRN 07/01/17 (*)] Carbidopa/Levo Cr 50/200Mg 0.5 - 1 tab PO DAILY@199907/01/17 [SINEMET CR 50/200 MG (*)] Carbidopa/Levo Cr 50/200Mg 0.5 - 1 tab PO TID PRN 07/01/17 [SINEMET CR 50/200 MG (*)] Multivitamins [Multivitamin (*)] 1 each PO DAILY 07/01/17 Pantoprazole Sodium [Protonix 40mg 40 mg PO BID #60 tab 07/04/17 (*)] Medical Decision Making - Diagnostics EKG Interpretation: EKG interpreted by me reveals normal sinus rhythm, rate 80, low voltage frontal leads, poor R-wave progression. Interpretation: Abnormal EKG ED Course/Re-evaluation: This pt presents after an episode of unresponsiveness. Clinical scenario c/w being asleep, no evidence of CVA or other concerning etiology. Neuro exam is normal. Pt safe/stable for d/c. Differential Diagnosis: includes though not limited to CVA, hypoglycemia, hyponatremia, dysrhythmia, medication effect - Data Points Laboratory Results: Laboratory Results 08/30/17 15:50 08/30/17 15:50 08/30/17 08/30/17 08/30/17 16:32 15:50 15:50 WBC 5.92 10^3/uL 10^3/uL (3.80-9.50) RBC 3.75 10^6/uL L 10^6/uL (4.18-5.33) Hgb 11.1 g/dL L g/dL (12.6-16.3) Hct 34.2 % L % (38.0-47.0) MCV 91.2 fL fL (81.5-99.8) MCH 29.6 pg pg (27.9-34.1) MCHC 32.5 g/dL g/dL (32.4-36.7) RDW 19.1 % H % (11.5-15.2) Plt Count 252 10^3/uL 10^3/uL (150-400) MPV 10.0 fL fL (8.7-11.7) Neut % (Auto) 70.0 % % (39.3-74.2) Lymph % (Auto) 19.3 % % (15.0-45.0) [place] % (Auto) 8.6 % % (4.5-13.0) Eos % (Auto) 1.4 % % (0.6-7.6) Baso % (Auto) 0.5 % % (0.3-1.7) Nucleat RBC Rel Count 0.0 % % (0.0-0.2) Absolute Neuts (auto) 4.15 10^3/uL 10^3/uL (1.70-6.50) Absolute Lymphs (auto) 1.14 10^3/uL 10^3/uL (1.00-3.00) Absolute Monos (auto) 0.51 10^3/uL 10^3/uL (0.30-0.80) Absolute Eos (auto) 0.08 10^3/uL 10^3/uL (0.03-0.40) Absolute Basos (auto) 0.03 10^3/uL 10^3/uL (0.02-0.10) Absolute Nucleated RBC 0.00 10^3/uL 10^3/uL (0-0.01) Immature Gran % 0.2 % % (0.0-1.1) Immature Gran # 0.01 10^3/uL 10^3/uL (0.00-0.10) Sodium 137 mEq/L mEq/L (135-145) Potassium 4.0 mEq/L mEq/L (3.3-5.0) Chloride 102 mEq/L mEq/L (97-110) Carbon Dioxide 26 mEq/l mEq/l (22-31) Anion Gap 9 mEq/L mEq/L (8-16) BUN 17 mg/dL mg/dL (7-23) Creatinine 0.8 mg/dL mg/dL (0.6-1.0) Estimated GFR > 60 Glucose 98 mg/dL mg/dL (70-100) Calcium 8.9 mg/dL mg/dL (8.5-10.4) POC Troponin I 0.01 ng/mL ng/mL (0.00-0.08) Point of Care Test Results: Chemistry 08/30/17 16:32 POC Troponin I 0.01 ng/mL ng/mL (0.00-0.08) Departure - Departure Disposition: Home, Routine, Self-Care Clinical Impression: Episode of unresponsiveness Condition: Good Instructions: Additional Information Additional Instructions: Return for recurrent symptoms or any concerns. Referrals: Bhupinder Montalvo DO [Medical Doctor] - As per Instructions
--- NOTE | 2017-08-30 16:38 | CPEKG ---
Heart Rate: 80 RR Interval: 750 P-R Interval: 172 QRSD Interval: 86 QT Interval: 424 QTC Interval: 490 P [place]: 71 QRS [place]: -14 T Wave [place]: 32 EKG Severity - ABNORMAL ECG - EKG Impression: SINUS RHYTHM EKG Impression: PROBABLE LEFT ATRIAL ABNORMALITY EKG Impression: LOW VOLTAGE IN FRONTAL LEADS EKG Impression: CONSIDER ANTEROSEPTAL INFARCT EKG Impression: BORDERLINE PROLONGED QT INTERVAL Electronically Signed By: Jessica Barriga 30-Aug-2017 20:42:02
[2017-08-30 17:05] VITALS: BP 156/86
== END 2017-08-30 17:03 | disposition home or self-care (01) ==
LOC: EDUNIT#
DX: R40.20 Unspecified coma (principal); F17.200 Nicotine dependence, unspecified, uncomplicated
CPT/HCPCS: 84484-PO

== ENCOUNTER 2018-01-17 16:24 | Inpatient (IN) | payer OTHER ==
[2018-01-17] MEDS ORDERED: PANTOPRAZOLE SODIUM 40 MG VIAL IVP ONE (16:27)
--- NOTE | 2018-01-17 17:04 | EDPHY ---
H & P Stated Complaint: rectal bleed Time Seen by Provider: 01/17/18 16:26 HPI/ROS: CHIEF COMPLAINT: Lower GI bleeding, hypotensive HISTORY OF PRESENT ILLNESS: The patient has a history of Crohn's disease and a history of a stomach cancer by report. She presents to the ED with a 2 day history of melena and hematochezia at home. The patient was found by family members on the floor today. She was unable to get up and ambulate to contact paramedics. Paramedics did report a large amount of blood was noted on scene in the bathroom. 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 She is not discussed a specific intervention plan with her regular lumber hacker Nicanor. REVIEW OF SYSTEMS: A comprehensive 10 point review of systems is otherwise negative aside from elements mentioned in the history of present illness. Source: Patient, Family - Personal History Current Tetanus/Diphtheria Vaccine: Yes Current Tetanus Diphtheria and Acellular Pertussis (TDAP): Yes - Medical/Surgical History Hx Asthma: No Hx Chronic Respiratory Disease: No Hx Diabetes: No Hx Cardiac Disease: No Hx Renal Disease: No Hx Cirrhosis: No Hx Alcoholism: No Hx HIV/AIDS: No Hx Splenectomy or Spleen Trauma: No Other PMH: Past medical history: Right hip replacement, Crohn's disease, appy, mode, hyst, cornea replacement, stomach CA - Social History Smoking Status: Light smoker - Physical Exam Exam: General Appearance: Elderly female, pale, diaphoretic, ill-appearing Eyes: Pupils equal and round no pallor or injection ENT, Mouth: Mucous membranes moist Respiratory: There are no retractions, lungs are clear to auscultation Cardiovascular: Regular rate and rhythm Gastrointestinal: Abdomen is soft and nontender, no masses, bowel sounds normal Neurological: 5/5 strength all 4 extremities Skin: Warm and dry, no rashes Musculoskeletal: Neck is supple nontender Extremities: symmetrical, full range of motion Psychiatric: Patient is oriented X 3, there is no agitation Constitutional: Initial Vital Signs Temperature (C) 36.4 C 01/17/18 16:24 Heart Rate 84 01/17/18 16:24 Respiratory Rate 18 01/17/18 16:24 Blood Pressure 122/80 H 01/17/18 16:24 O2 Delivery Mode Nasal Cannula O2 (L/minute) 3 Allergies/Adverse Reactions: clarithromycin [From Biaxin] Allergy (Severe, Verified 01/17/18 17:27) doxycycline Allergy (Severe, Verified 01/17/18 17:27) erythromycin base [Erythromycin Base] Allergy (Severe, Verified 01/17/18 17:27) levofloxacin [From Levaquin] Allergy (Severe, Verified 01/17/18 17:27) metronidazole Allergy (Severe, Verified 01/17/18 17:27) Penicillins Allergy (Severe, Verified 01/17/18 17:27) Quinolones Allergy (Severe, Verified 01/17/18 17:27) Sulfa (Sulfonamide Antibiotics) Allergy (Severe, Verified 01/17/18 17:27) Home Medications: Medication Instructions Recorded Acetaminophen [Tylenol ES 500 mg 1,000 mg PO TID 07/01/17 (*)] Albuterol [Proventil Inhaler HFA 2 puffs IH QID PRN 07/01/17 (*)] Carbidopa/Levo Cr 50/200Mg 0.5 - 1 tab PO TID PRN 07/01/17 [SINEMET CR 50/200 MG (*)] Pantoprazole Sodium [Protonix 40mg 40 mg PO BID #60 tab 07/04/17 (*)] Sucralfate [Carafate 1gm/10ml Oral 1 gm PO QID 01/17/18 Liquid (*)] Medical Decision Making ED Course/Re-evaluation: Patient presents to the ED with reported massive GI bleed and hypotension in the setting of a known intestinal tumor. The patient arrives and had initial blood pressure of 120/80. She was placed on a classroom monitor. She had 2 large bore IVs established. I-STAT hematocrit demonstrates a undetectable hematocrit less than 15. 2 units of O-negative blood has been ordered. The patient received IV Protonix. I reviewed the patient's past medical records. I consulted with Dr. Shell Turk at 5:00 p.m. 5:15 p.m.: Receiving O negative blood. Blood pressure 101/60, heart rate 89. The patient has been typed and crossed for another 4 units of blood. The patient is transferred to the intensive care unit for further resuscitation and stabilization. I spoke with Dr. Gracy Albert who will admit the patient. Differential Diagnosis: Differential diagnosis considered includes upper GI bleed, lower GI bleed, hemorrhagic shock Critical Care Time: Critical care time exclusive of procedures and exclusive of the PA's time was 65 minutes, performed by myself, Jasper Taveras MD. Patient presents to the ED with massive bleeding and a critical hematocrit less than 15. The patient required 2 units of O-negative blood in the emergency department. Consultation is made with the hospitalist service and Gastroenterology. She will be admitted to the intensive care unit. - Data Points Laboratory Results: Laboratory Results 01/17/18 16:36 01/17/18 16:36 01/17/18 01/17/18 01/17/18 16:39 16:36 16:36 WBC RBC Hgb POC Hgb TNP Hct POC Hct < 15 % L* % (38-47) MCV MCH MCHC RDW Plt Count MPV Neut % (Auto) Lymph % (Auto) Tyrrell % (Auto) Eos % (Auto) Baso % (Auto) Nucleat RBC Rel Count Absolute Neuts (auto) Absolute Lymphs (auto) Absolute Monos (auto) Absolute Eos (auto) Absolute Basos (auto) Absolute Nucleated RBC Immature Gran % Seg Neutrophils % Band Neutrophils % Lymphocytes % Monocytes % Eosinophils % Basophils % Metamyelocytes % Myelocytes % Promyelocytes % Blast Cells % Immature Gran # Absolute Seg Neuts Absolute Band Neuts Absolute Lymphocytes Absolute Monocytes Absolute Eosinophils Absolute Basophils Absolute Metamyelocyte Absolute Myelocytes Absolute Promyelocytes Absolute Plasma Cells Nucleated RBCs Absolute Blast Cells Plasma Cells % Platelet Estimate Polychromasia Hypochromasia Microcytic Cells Oval Macrocytes Stomatocytes Schistocytes Smear Review By PT 15.9 SEC H SEC (12.0-15.0) INR 1.25 H (0.83-1.16) APTT 26.6 SEC SEC (23.0-38.0) POC Sodium 139 mEq/L mEq/L (135-145) Sodium 139 mEq/L mEq/L (135-145) POC Potassium 2.9 mEq/L L mEq/L (3.3-5.0) Potassium 3.2 mEq/L L mEq/L (3.5-5.2) POC Chloride 98 mEq/L mEq/L (97-110) Chloride 101 mEq/L mEq/L (97-110) Carbon Dioxide 24 mEq/l mEq/l (22-31) Anion Gap 14 mEq/L mEq/L (6-14) POC BUN 60 mg/dL H mg/dL (7-23) BUN 60 mg/dL H mg/dL (7-23) Creatinine 0.9 mg/dL mg/dL (0.6-1.0) POC Creatinine 0.9 mg/dL mg/dL (0.6-1.0) Estimated GFR 59 Glucose 167 mg/dL H mg/dL (70-100) POC Glucose 175 mg/dL H mg/dL (70-100) Calcium 7.9 mg/dL L mg/dL (8.5-10.4) 01/17/18 16:36 WBC 14.15 10^3/uL H 10^3/uL (3.80-9.50) RBC 1.69 10^6/uL L 10^6/uL (4.18-5.33) Hgb 3.6 g/dL L* g/dL (12.6-16.3) POC Hgb Hct 12.8 % L* % (38.0-47.0) POC Hct MCV 75.7 fL L fL (81.5-99.8) MCH 21.3 pg L pg (27.9-34.1) MCHC 28.1 g/dL L g/dL (32.4-36.7) RDW 22.1 % H % (11.5-15.2) Plt Count 417 10^3/uL H 10^3/uL (150-400) MPV 9.9 fL fL (8.7-11.7) Neut % (Auto) 90.1 % H % (39.3-74.2) Lymph % (Auto) 3.1 % L % (15.0-45.0) Tyrrell % (Auto) 6.1 % % (4.5-13.0) Eos % (Auto) 0.0 % L % (0.6-7.6) Baso % (Auto) 0.1 % L % (0.3-1.7) Nucleat RBC Rel Count 0.3 % H % (0.0-0.2) Absolute Neuts (auto) 12.76 10^3/uL H 10^3/uL (1.70-6.50) Absolute Lymphs (auto) 0.44 10^3/uL L 10^3/uL (1.00-3.00) Absolute Monos (auto) 0.86 10^3/uL H 10^3/uL (0.30-0.80) Absolute Eos (auto) 0.00 10^3/uL L 10^3/uL (0.03-0.40) Absolute Basos (auto) 0.01 10^3/uL L 10^3/uL (0.02-0.10) Absolute Nucleated RBC 0.04 10^3/uL H 10^3/uL (0-0.01) Immature Gran % 0.6 % % (0.0-1.1) Seg Neutrophils % 88.8 % % Band Neutrophils % 0.0 % % Lymphocytes % 6.1 % % Monocytes % 5.1 % % Eosinophils % 0.0 % % Basophils % 0.0 % % Metamyelocytes % 0.0 % % Myelocytes % 0.0 % % Promyelocytes % 0.0 % % Blast Cells % 0.0 % % Immature Gran # 0.08 10^3/uL 10^3/uL (0.00-0.10) Absolute Seg Neuts 12.57 10^3/uL H 10^3/uL (1.70-6.50) Absolute Band Neuts 0.00 10^3/uL 10^3/uL (0.00-0.70) Absolute Lymphocytes 0.86 10^3/uL L 10^3/uL (1.00-3.00) Absolute Monocytes 0.72 10^3/uL 10^3/uL (0.30-0.80) Absolute Eosinophils 0.00 10^3/uL L 10^3/uL (0.03-0.40) Absolute Basophils 0.00 10^3/uL L 10^3/uL (0.02-0.10) Absolute Metamyelocyte 0.00 10^3/mL 10^3/mL (0.00-0.00) Absolute Myelocytes 0.00 10^3/mL 10^3/mL (0.00-0.00) Absolute Promyelocytes 0.00 10^3/uL 10^3/uL (0.00-0.00) Absolute Plasma Cells 0.00 10^3/uL 10^3/uL (0.00-0.00) Nucleated RBCs 0 /100 WBC /100 WBC (0-0) Absolute Blast Cells 0.00 10^3/uL 10^3/uL (0.00-0.00) Plasma Cells % 0.0 % % Platelet Estimate ADEQUATE (ADEQ) Polychromasia 3+ H Hypochromasia 3+ H Microcytic Cells 3+ H Oval Macrocytes 1+ H Stomatocytes 1+ H Schistocytes 1+ H Smear Review By Pending PT INR APTT POC Sodium Sodium POC Potassium Potassium POC Chloride Chloride Carbon Dioxide Anion Gap POC BUN BUN Creatinine POC Creatinine Estimated GFR Glucose POC Glucose Calcium Medications Given: Discontinued Medications Pantoprazole Sodium (Protonix) 40 mg IVP EDNOW ONE Stop: 01/17/18 16:28 Last Admin: 01/17/18 16:46 Dose: 40 mg Point of Care Test Results: Chemistry 01/17/18 16:39 POC Sodium 139 mEq/L mEq/L (135-145) POC Potassium 2.9 mEq/L L mEq/L (3.3-5.0) POC Chloride 98 mEq/L mEq/L (97-110) POC BUN 60 mg/dL H mg/dL (7-23) POC Creatinine 0.9 mg/dL mg/dL (0.6-1.0) POC Glucose 175 mg/dL H mg/dL (70-100) ISTAT H&H 01/17/18 16:39 POC Hgb TNP POC Hct < 15 % L* % (38-47) Departure - Departure Disposition: [facility] Inpatient Acute Clinical Impression: Upper GI bleed, Crohns disease, Hemorrhagic shock Condition: Critical
[2018-01-17 17:17] LABS: INR 1.25 (0.83-1.16); PROTIME(PATIENT) 15.9 SEC (12.0-15.0)
[2018-01-17 17:22] LABS: PLATELET COUNT 417 10^3/uL (150-400)
[2018-01-17] MEDS ORDERED: oxyCODONE IR 5 MG TAB PO PRN (18:29)
[2018-01-17] MEDS ORDERED: ONDANSETRON DISINTEGRATING 4 MG TAB PO PRN (18:29)
[2018-01-17] MEDS ORDERED: HYDROCODONE/APAP 5/325 TAB PO PRN (18:29)
[2018-01-17] MEDS ORDERED: ONDANSETRON 4 MG/2 ML VIAL IVP PRN (18:29)
[2018-01-17] MEDS ORDERED: CARBIDOPA/LEVO CR 50 MG/200 MG TAB PO PRN (18:31)
--- NOTE | 2018-01-17 19:01 | PDGENHP ---
History and Physical - Chief Complaint gi bleed - History of Present Illness 87 yo F with PMH of stomach cancer, Crohn's disease and chronic GI bleed presenting with worsening blood loss for the last two days. Patient notes she always has some blood in her stool ever since her last admission here for GI bleed in June of this year at which time she was diagnosed with gastric cancer. In the last two days the bleeding seemed much heavier and this morning she was found lying on the ground with her bed full of blood and black stool. At the time of presentation to the ER her hct was found to be less than 15. She is very somnolent at the time of my evaluation which her son present at bedsides notes has been usual for her recently but she otherwise denies any recent changes in her health. She is followed both by GI and oncology at [facility] and states that there has been a plan for mostly conservative management with intervention only if necessary and no plans for aggressive intervention like surgery. History Information - Allergies/Home Medication List Allergies/Adverse Reactions: clarithromycin [From Biaxin] Allergy (Severe, Verified 01/17/18 17:27) doxycycline Allergy (Severe, Verified 01/17/18 17:27) erythromycin base [Erythromycin Base] Allergy (Severe, Verified 01/17/18 17:27) levofloxacin [From Levaquin] Allergy (Severe, Verified 01/17/18 17:27) metronidazole Allergy (Severe, Verified 01/17/18 17:27) Penicillins Allergy (Severe, Verified 01/17/18 17:27) Quinolones Allergy (Severe, Verified 01/17/18 17:27) Sulfa (Sulfonamide Antibiotics) Allergy (Severe, Verified 01/17/18 17:27) Home Medications: Acetaminophen [Tylenol ES 500 mg (*)] 1,000 mg PO TID 07/01/17 [Last Taken Unknown] Albuterol [Proventil Inhaler HFA (*)] 2 puffs IH QID PRN 07/01/17 [Last Taken Unknown] Carbidopa/Levo Cr 50/200Mg [SINEMET CR 50/200 MG (*)] 0.5 - 1 tab PO TID PRN [Last Taken Unknown] Sucralfate [Carafate 1gm/10ml Oral Liquid (*)] 1 gm PO QID 01/17/18 [Last Taken Unknown] I have personally reviewed and updated: family history, medical history, social history, surgical history - Past Medical History cancer (gastric), COPD, Crohn's Disease, GI bleed Additional medical history: restless leg syndrome - Surgical History Reports: appendectomy, cholecystectomy, hysterectomy Additional surgical history: hip arthroplasty. cornea surgery - Family History Positive for: cancer (father of bone cancer) - Social History Smoking Status: Current some day smoker Alcohol Use: Occasionally Drug Use: None Additional social history: lives independently with a caregiver that comes in several times per week Review of Systems Review of Systems: ROS: 10pt was reviewed & negative except for what was stated in HPI & below Physical Exam Physical Exam: Temp Pulse Resp BP Pulse Ox 36.4 C 85 20 114/65 93 01/17/18 16:24 01/17/18 17:40 01/17/18 17:40 01/17/18 17:40 01/17/18 17:40 O2 (L/minute) 3 Constitutional: not in pain, chronically ill appearing Eyes: anicteric sclera, pale conjunctiva Ears, Nose, Mouth, Throat: no oral mucosal ulcers, dry mucous membranes, No hearing normal Cardiovascular: regular rate and rhythym, no murmur, rub, or gallop, No edema Respiratory: no respiratory distress, no rales or rhonchi, clear to auscultation Gastrointestinal: normoactive bowel sounds, soft, non-tender abdomen Genitourinary: no bladder tenderness Skin: warm, other (pale) Musculoskeletal: no muscle tenderness Neurologic: AAOx3 Psychiatric: not anxious, encephalopathic, other (somnolent) Lab Data & Imaging Review 01/17/18 16:36 01/17/18 16:36 WBC 14.15 10^3/uL (3.80-9.50) H 01/17/18 16:36 RBC 1.69 10^6/uL (4.18-5.33) L 01/17/18 16:36 Hgb 3.6 g/dL (12.6-16.3) L* 01/17/18 16:36 POC Hgb TNP 01/17/18 16:39 Hct 12.8 % (38.0-47.0) L* 01/17/18 16:36 POC Hct < 15 % (38-47) L* 12/12/18 16:39 MCV 75.7 fL (81.5-99.8) L 01/17/18 16:36 MCH 21.3 pg (27.9-34.1) L 01/17/18 16:36 MCHC 28.1 g/dL (32.4-36.7) L 01/17/18 16:36 RDW 22.1 % (11.5-15.2) H 01/17/18 16:36 Plt Count 417 10^3/uL (150-400) H 01/17/18 16:36 MPV 9.9 fL (8.7-11.7) 01/17/18 16:36 Neut % (Auto) 90.1 % (39.3-74.2) H 01/17/18 16:36 Lymph % (Auto) 3.1 % (15.0-45.0) L 01/17/18 16:36 [place] % (Auto) 6.1 % (4.5-13.0) 01/17/18 16:36 Eos % (Auto) 0.0 % (0.6-7.6) L 01/17/18 16:36 Baso % (Auto) 0.1 % (0.3-1.7) L 01/17/18 16:36 Nucleat RBC Rel Count 0.3 % (0.0-0.2) H 01/17/18 16:36 Absolute Neuts (auto) 12.76 10^3/uL (1.70-6.50) H 01/17/18 16:36 Absolute Lymphs (auto) 0.44 10^3/uL (1.00-3.00) L 01/17/18 16:36 Absolute Monos (auto) 0.86 10^3/uL (0.30-0.80) H 01/17/18 16:36 Absolute Eos (auto) 0.00 10^3/uL (0.03-0.40) L 01/17/18 16:36 Absolute Basos (auto) 0.01 10^3/uL (0.02-0.10) L 01/17/18 16:36 Absolute Nucleated RBC 0.04 10^3/uL (0-0.01) H 01/17/18 16:36 Immature Gran % 0.6 % (0.0-1.1) 01/17/18 16:36 Seg Neutrophils % 88.8 % 01/17/18 16:36 Band Neutrophils % 0.0 % 01/17/18 16:36 Lymphocytes % 6.1 % 01/17/18 16:36 Monocytes % 5.1 % 01/17/18 16:36 Eosinophils % 0.0 % 01/17/18 16:36 Basophils % 0.0 % 01/17/18 16:36 Metamyelocytes % 0.0 % 01/17/18 16:36 Myelocytes % 0.0 % 01/17/18 16:36 Promyelocytes % 0.0 % 01/17/18 16:36 Blast Cells % 0.0 % 01/17/18 16:36 Immature Gran # 0.08 10^3/uL (0.00-0.10) 01/17/18 16:36 Absolute Seg Neuts 12.57 10^3/uL (1.70-6.50) H 01/17/18 16:36 Absolute Band Neuts 0.00 10^3/uL (0.00-0.70) 01/17/18 16:36 Absolute Lymphocytes 0.86 10^3/uL (1.00-3.00) L 01/17/18 16:36 Absolute Monocytes 0.72 10^3/uL (0.30-0.80) 01/17/18 16:36 Absolute Eosinophils 0.00 10^3/uL (0.03-0.40) L 01/17/18 16:36 Absolute Basophils 0.00 10^3/uL (0.02-0.10) L 01/17/18 16:36 Absolute Metamyelocyte 0.00 10^3/mL (0.00-0.00) 01/17/18 16:36 Absolute Myelocytes 0.00 10^3/mL (0.00-0.00) 01/17/18 16:36 Absolute Promyelocytes 0.00 10^3/uL (0.00-0.00) 01/17/18 16:36 Absolute Plasma Cells 0.00 10^3/uL (0.00-0.00) 01/17/18 16:36 Nucleated RBCs 0 /100 WBC (0-0) 01/17/18 16:36 Absolute Blast Cells 0.00 10^3/uL (0.00-0.00) 01/17/18 16:36 Plasma Cells % 0.0 % 01/17/18 16:36 Platelet Estimate ADEQUATE (ADEQ) 01/17/18 16:36 Polychromasia 3+ H 01/17/18 16:36 Hypochromasia 3+ H 01/17/18 16:36 Microcytic Cells 3+ H 01/17/18 16:36 Oval Macrocytes 1+ H 01/17/18 16:36 Stomatocytes 1+ H 01/17/18 16:36 Schistocytes 1+ H 01/17/18 16:36 PT 15.9 SEC (12.0-15.0) H 01/17/18 16:36 INR 1.25 (0.83-1.16) H 01/17/18 16:36 APTT 26.6 SEC (23.0-38.0) 01/17/18 16:36 POC Sodium 139 mEq/L (135-145) 01/17/18 16:39 Sodium 139 mEq/L (135-145) 01/17/18 16:36 POC Potassium 2.9 mEq/L (3.3-5.0) L 01/17/18 16:39 Potassium 3.2 mEq/L (3.5-5.2) L 01/17/18 16:36 POC Chloride 98 mEq/L (97-110) 01/17/18 16:39 Chloride 101 mEq/L (97-110) 01/17/18 16:36 Carbon Dioxide 24 mEq/l (22-31) 01/17/18 16:36 Anion Gap 14 mEq/L (6-14) 01/17/18 16:36 POC BUN 60 mg/dL (7-23) H 01/17/18 16:39 BUN 60 mg/dL (7-23) H 01/17/18 16:36 Creatinine 0.9 mg/dL (0.6-1.0) 01/17/18 16:36 POC Creatinine 0.9 mg/dL (0.6-1.0) 01/17/18 16:39 Estimated GFR 59 01/17/18 16:36 Glucose 167 mg/dL (70-100) H 01/17/18 16:36 POC Glucose 175 mg/dL (70-100) H 01/17/18 16:39 Calcium 7.9 mg/dL (8.5-10.4) L 01/17/18 16:36 Patient ABO/Rh A POSITIVE 01/17/18 17:05 Antibody Screen NEGATIVE 01/17/18 17:05 Crossmatch IS Only See Detail 01/17/18 17:05 Visualized and Interpreted EKG results: Yes EKG Interpretation: Positive for: normal sinsus rhythm Assessment & Plan Assessment: Crohns disease (Acute) Hemorrhagic shock (Acute) Upper GI bleed (Acute) 87 yo F with PMH of Crohns disease, gastric cancer and recurrent/chronic GI bleed presenting with acute on chronic anemia in setting of GI hemorrhage # GI bleed: patient with underlying gastric cancer and Crohn's and has chronic GI bleed per her report but presenting now s/p hemorrhage with profound anemia. Transfused stat trauma blood in ER, GI consulted, currently HD stable. Bleed likely due to her stomach cancer but has many reasons for bleed with prior gastric ulcer as well as underlying Crohns. Will start IV PPI. NPO after MN in case of procedure in am, Bersentes aware and will see patient in am. # acute on chronic severe anemia: due to GI blood loss her most recent hct was in the 30s, presenting with hct of 12.8, transfused 2 units and will likely need several more to get closer to 21, will trend serial h/h and transfuse prn # gastric cancer: not surgical candidate presumably due to patient preference and age, do not have access to [facility] records currently (not in [facility]), will request they be faxed over # Crohn's disease: no longer on Crohn's meds by her current med list, apparently has been quiescent of late # PUD: with prior GI bleed at least in part due to that, IV PPI for now, continue carafate # metabolic encephalopathy: patient very somnolent and having trouble maintaining alertness to complete interview, per son this has been this way for several days, likely due to profound anemia, monitoring # DNR--confirmed with patients son # IP status, requiring ICU care, > 35 min of critical care time spent in admission of this patient in interpretation of labs, review of history and coordination with consultants Patient new to my care. Old records reviewed and summarized as above. Care plan reviewed with ER doctor including plans for ICU admission.
[2018-01-17] MEDS: PANTOPRAZOLE SODIUM 40 MG VIAL IVP SCH ×2 (19:18→23:45)
[2018-01-17] MEDS: SUCRALFATE 1 GM/10 ML UDCUP PO SCH (21:27)
[2018-01-17] MEDS: NS 1,000 ML IV SCH (21:30)
--- NOTE | 2018-01-17 22:32 | CPEKG ---
Test Reason : OPEN Blood Pressure : / mmHG Vent. Rate : 086 BPM Atrial Rate : 086 BPM P-R Int : 142 ms QRS Dur : 095 ms QT Int : 439 ms P-R-T Axes : 082 050 078 degrees QTc Int : 525 ms Sinus rhythm Low voltage, extremity leads Anteroseptal infarct, old Nonspecific repol abnormality, diffuse leads Prolonged QT interval Confirmed by Jasper Taveras ([id number]) on 01/17/2018 10:31:58 PM Referred By: Confirmed By:Jasper Taveras
[2018-01-18] MEDS: ALBUTEROL 60 PUFFS/8 GM MDI IH PRN ×2 (04:32→16:53)
[2018-01-18] MEDS: PANTOPRAZOLE SODIUM 40 MG VIAL IVP SCH ×3 (05:42→18:10)
[2018-01-18] MEDS: SUCRALFATE 1 GM/10 ML UDCUP PO SCH ×4 (05:42→23:55)
[2018-01-18] MEDS: NS 1,000 ML IV SCH ×2 (05:49→15:49)
[2018-01-18 06:26] LABS: PLATELET COUNT 252 10^3/uL (150-400)
[2018-01-18] MEDS ORDERED: PROTOCOL POTASSIUM 1 DOSE MISC PRN (06:45)
[2018-01-18] MEDS: POTASSIUM Cl (KCl) 100 ML IV SCH ×4 (09:53→13:09)
--- NOTE | 2018-01-18 11:11 | PDMN ---
Medical Necessity Medical necessity: M182 GIB- 87 yr old F. found with "bed full of blood" and black stool. H/H 3.6/12.8, 2 units transfused -PMHx stomach Ca., crohns, chronic GIB, further monitoring, and tx needed anticipate > 2 MN
--- NOTE | 2018-01-18 16:34 | WOCRNPDOC ---
WOCRN Advanced Assessment Note - Skin Integrity Problem, Advanced Assess Sacrum Pressure Injury Dressing Type: Allevyn Life Dressing Description: Clean/Dry, Intact Closure Description: Not Approximated Exudate Amount: None Integumentary Issue Intervention: Visualized Under Dressing Paulina Wound Tissue: Blanching, Erythema, Thin Paulina Wound Swelling: None Wound Bed Color: Hawley Wound Edges: Attached, Well Defined Site Measurement - Head-to-Toe Length X Width X Depth (cm): 0.7x0.5x0.1 Pressure Injury Stage: Stage 2 Pressure Injury Present on Admit: Yes Skin Integrity Problem Comment: Patient rolled to right side with assist from RNs Caroline and Efe. Pavithra pulled back to reveal a small partial thickness wound over a bony prominance on her sacrum. This wound represents a stage 2 pressure injury, present on admission. Pressure relieving measures implemented. Wound care will round again early next week.
[2018-01-18] MEDS ORDERED: FUROSEMIDE 40 MG/4 ML VIAL IVP ONE (16:48)
--- NOTE | 2018-01-18 16:49 | GCON ---
DATE OF CONSULTATION: 01/18/2018 REFERRING PHYSICIAN: Gracy Albert MD CHIEF COMPLAINT: GI bleed. HISTORY OF PRESENT ILLNESS: I am asked to see this patient consultation by Dr. Albert for chief c dennys of GI bleed. The patient is an unfortunate 87-year-old who has history of gastrointestinal malignancy, started with bowel resection in 2016, of her ileum and then presented earlier this year i june with GI bleeding, and was found to have a very atypical appearing ulcer. This was biopsied, bu t showed chronic inflammation only. She was to follow up with her physicians at [facility]. The son tel ls me that they did confirm that she has gastric cancer, but that the patient declined surgery, chemo therapy, or further treatment, and they were taking more of a comfort care approach. Much of the his tory is obtained from the patient's son. She has had some nausea, but no vomiting. Some abdominal p ain, and then yesterday was noted to have a large amount of black stool in her Depends and was cristel t into the emergency room, was found to have significant anemia, but was hemodynamically stable. She responded well to a transfusion. ALLERGIES: Listed to Clarithromycin, doxycycline, erythromycin, metronidazole, penicillins, quinolon es, and sulfa. MEDICINES ON ADMISSION: Carafate 1 g four times daily, pantoprazole, Sinemet, albuterol inhaler, and Tylenol. PAST MEDICAL HISTORY: Notable for a recent diagnosis of gastric cancer, history of COPD, history of Crohn disease, although no active disease on last colonoscopy this year, history of recurrent GI blee ding. SOCIAL HISTORY: She denies alcohol use. FAMILY HISTORY: Positive for bone cancer in her father. REVIEW OF SYSTEMS: I performed a complete review of systems, which is negative, except for pertinent positives, negatives noted above in the HPI. PHYSICAL EXAM: VITAL SIGNS: Afebrile at 36. 7, BP 149/66, pulse 86. CONSTITUTIONAL: Alert and dayton ented. HEENT: Eyes: No scleral icterus. ENT: No oral lesions. CARDIOVASCULAR: Regular rhythm. CHEST: Clear to auscultation. ABDOMEN: Slightly tender to light palpation, but no masses, rebound. NEUROLOGIC: Nonfocal. SKIN: No lesions. LABORATORY DATA: On presentation. BUN, creatinine were 60 and 0.9, now 46 and 0.5. Hematocrit was 15 with an MCV of 75. After transfusion, her hematocrit is now 23. Low potassium 2.6. ASSESSMENT: Recurrent gastrointestinal bleeding. 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 Most likely this is from her known gastric cancer. I discuss ed with the son and the patient that we have at this point, little options for treating her gastric c ancer endoscopically, although hemostats spray is now available, not yet here at this hospital. We d iscussed a hemostat spray can provide immediate hemostasis, but generally, it will last about 48 hour s. I do believe that a hemostat spray is available at [facility]. We discussed options of Inter ventional Radiology embolization, but this can be difficult, especially if the tumor is not actively bleeding versus conservative approach with comfort care, including blood transfusion as needed. Maryjane ent at this point has declined invasive procedures, the son is in agreement. PLAN: Recommend transfuse as needed. Can advance her diet. If it appears that there is no active b leeding, potentially discharge in next day or two to follow up with her doctors at [facility]. May need to consider hospice. Thank you for this consult. /[id number]
--- NOTE | 2018-01-18 16:55 | HOSPPROG ---
Hospitalist Progress Note Assessment/Plan: * Gastric cancer -details unclear, follows at [facility] -consult oncology - d/w Dr. Lauren -ongoing bleeding is concerning -check CT abd/pelvis for prognosis - if diffuse mets consider hospice * UGIB -GI consulted -need further clarification of history - last EGD here with negative biopsy -empiric IV PPI and sucralfate * ABL anemia -transfusing 3rd unit currently * h/o Crohn's * Metabolic encephalopathy due to anemia * Acute respiratory failure -increased resp rate (26) after blood transfusions with crackles -suspect volume overload due to transfusions -IV lasix Subjective: confused, unable to give much history Objective: Vital Signs Temp Pulse Resp BP Pulse Ox 36.6 C 91 22 H 147/86 H 91 L 01/18/18 16:00 01/18/18 16:00 01/18/18 16:00 01/18/18 16:00 01/18/18 16:00 Laboratory Results 01/18/18 12:20 01/18/18 15:00 01/17/18 01/18/18 01/19/18 05:59 05:59 05:59 Intake Total 2100 1361 Output Total 150 Balance 1950 1361 PT 15.9 SEC (12.0-15.0) H 01/17/18 16:36 INR 1.25 (0.83-1.16) H 01/17/18 16:36 EKG viewed, my personal interpretation is - NSR, no ischemic change - Physical Exam Constitutional: no apparent distress, appears nourished, not in pain Cardiovascular: regular rate and rhythym, no murmur, rub, or gallop Respiratory: no respiratory distress, no rales or rhonchi, clear to auscultation Gastrointestinal: normoactive bowel sounds, soft, non-tender abdomen, no palpable masses Skin: no rashes or abrasions, no fluctuance, no induration Neurologic: No AAOx3 Psychiatric: encephalopathic, poor insight, poor judgement, poor memory, No interacting appropriately, No agitated ICD10 Worksheet Patient Problems: Problems Problem Status Onset Crohns disease Acute Hemorrhagic shock Acute Upper GI bleed Acute Anemia Active Hyponatremia Active Lower gastrointestinal hemorrhage Active Gastrointestinal hemorrhage Acute Periprosthetic fracture around internal prosthetic right hip joint Acute Severe anemia Acute
[2018-01-18] MEDS ORDERED: IOPAMIDOL (ISOVUE-300) 100 ML BTL ONE (19:38)
[2018-01-19] MEDS: PANTOPRAZOLE SODIUM 40 MG VIAL IVP SCH ×4 (00:18→18:03)
--- NOTE | 2018-01-19 02:37 | GCON ---
INPATIENT ONCOLOGY CONSULTATION DATE OF CONSULTATION: 01/18/2018 REFERRING PHYSICIAN: Sangeetha Menard MD REASON FOR CONSULTATION: Possible gastric cancer. HISTORY OF PRESENT ILLNESS: The patient is an 87-year-old woman, admitted to the hospital with a allyson pected upper GI bleed. I am told that the patient has a history of gastric cancer, though I have not been able to confirm that. She was mainly cared for at [facility]; so, medical records are limited. Amira augustine was admitted to this hospital in June 2017 with symptoms of upper GI bleeding. She had an endoscopy performed by Dr. Turk, which showed a gastric ulcer, 15 mm in size, with an adherent clot. The re was no visual evidence of a tumor. Biopsies of the base of the ulcer did not show evidence of mal ignancy. She also had a colonoscopy which was unremarkable, though the patient does have a history o f Crohn disease. Now, the patient is again admitted with a complaint of weakness. On admission last night, her hemogl obin was low at 3.6. She has received several units of blood, and it is now up to 6.9. She believes she has a history of gastric cancer, but does not recall if any additional endoscopic procedures wer e performed. When asked the name of her oncologist, she gives in the name of Dr. Jenkins who is an field nurse case manager at [facility]. I attempted to reach her son by telephone, but was unable to reach him. She s aid that she was told she would begin treatment for her cancer "when pain developed." Aside from fee ling weak presumably from the anemia, she denies abdominal pain, dysphagia, or weight loss. PAST MEDICAL HISTORY: Crohn disease. CURRENT MEDICATIONS: Sinemet, Protonix IV 40 mg q.6, and sucralfate. ALLERGIES: She is allergic to multiple antibiotics including Levaquin, doxycycline, erythromycin, an d clarithromycin. FAMILY HISTORY: Noncontributory. SOCIAL HISTORY: She smokes 2 cigarettes per day. She lives alone. REVIEW OF SYSTEMS: Aside from pertinent positives in the HPI, a 14-point review of systems is negati ve. PHYSICAL EXAMINATION: VITAL SIGNS: Her temperature is 36.7, blood pressure 142/59, heart rate 89, o xygen saturation 97% on 1 L. GENERAL: She is an elderly woman, in no acute distress, breathing comf ortably. HEENT: Sclerae anicteric. Oropharynx clear. NECK: Supple, without lymphadenopathy. REFUGIO GS: Clear to auscultation bilaterally. CARDIAC: Regular rate and rhythm. No murmurs, gallops, or rubs. ABDOMEN: Normal bowel sounds. It is moderately distended. I did not appreciate any organome leonard, although exam is limited due to abdominal distention. EXTREMITIES: Without edema. NEUROLOGIC : She is tired, but alert and oriented. LABORATORY DATA: White count 13.3, hemoglobin 7.2, platelets of 252. Basic metabolic panel was unre markable. Her INR was 1.25. IMPRESSION: This is an 87-year-old woman with a known history of bleeding gastric ulcer diagnosed in June 2017, now presents with a recurrent gastrointestinal bleed. It is indicated in the chart that t he patient has a history of gastric cancer, and the patient provides this history, but really is not able to provide any details. Reference is made to a biopsy done in June, but that biopsy did not show evidence of cancer; therefore, without further corroborating information, I would not necessarily co nclude that she has a cancer diagnosis at all. Possibly an additional biopsy was done at [facility] or a [facility], but I do not have access to that and was not able to reach any family to provide a nj additional history. RECOMMENDATION: Treat her for a GI bleed, and we will attempt to gather more information in the inte rim. A CT of the abdomen and pelvis may be useful to look for evidence of metastatic disease or obvi ous evidence of a gastrointestinal tumor. If she has metastatic cancer, treatment options would be q uite limited and hospice may be appropriate. If she only has localized disease, surgery may not be a ppropriate, but it is possible that radiation or an embolization procedure might help to stem some of the bleeding. Again, I would want to have some firm evidence that she has a histologic diagnosis of gastric cancer before recommending any of those treatments. Thank you for this consultation. I will continue to follow the patient with you closely while she is in the hospital. /[id number]/MODL
[2018-01-19 05:16] LABS: PLATELET COUNT 232 10^3/uL (150-400)
--- NOTE | 2018-01-19 05:43 | GCON ---
CRITICAL CARE CONSULTATION DATE OF CONSULTATION: 01/18/2018 HISTORY OF PRESENT ILLNESS: This patient is an 87-year-old female with a history of known gastric ca ncer and recurrent GI bleeding. In fact, she has had a steady slow GI bleed for several months. How ever, in the last few days, she became more somnolent and had increasing output, including bright red blood. When she came to the emergency department, she was found to have a hemoglobin of 3.6 and a h ematocrit of 12.8. She was given 2 units of red cells and transferred into the step-down unit. Meme augustine was a GI consult called. She has remained normotensive throughout this, and her hematocrit came up nicely. Her son was at the bedside as the patient was really quite somnolent and not able to answer any questions. He said that she had been really quite stable, and this came suddenly without any pr ecipitating events, including worsening diarrhea. REVIEW OF SYSTEMS: Otherwise negative. PAST MEDICAL HISTORY: Includes stomach cancer, Crohn disease, chronic GI bleeding, chronic melena, C OPD, and a gastric ulcer in the past. PAST SURGICAL HISTORY: Includes an appendectomy, cholecystectomy, hysterectomy, total hip arthroplas ty, corneal surgeries, and previous EGDs. FAMILY HISTORY: Includes bone cancer. SOCIAL HISTORY: She is a current smoker. MEDICATIONS: At the time of my evaluation included albuterol, Sinemet, Zofran, oxycodone, pantoprazo le, and sucralfate. PHYSICAL EXAMINATION: VITAL SIGNS: Her blood pressure was 149/66, heart rate of 86, respirations 22 , and oxygen saturation 96% on 2 L. GENERAL APPEARANCE: She was in no apparent distress. Not using accessory muscles for breathing, though she was quite somnolent and did not answer any questions oth er than yes and no. HEENT: Pupils were equally round and reactive to light, nonicteric and noninjec monserrat. Mucous membranes were dry, without erythema or exudate. NECK: Supple, without adenopathy or j ugular vein distention. LUNGS: Breath sounds were distant, but clear to auscultation bilaterally. Without wheezes, rubs, or rales. HEART: Had a regular rate and rhythm. ABDOMEN: Mildly tender dif fusely, probably more so in the left upper quadrant. There was some guarding, but no obvious rebound . It was not distended. Hypoactive bowel tones. EXTREMITIES: Showed no clubbing, cyanosis, or ivelisse ma. NEUROLOGIC: Nonfocal, including cranial nerves. OBJECTIVE DATA: Includes the hemoglobin and hematocrit I described above. The next hematocrit was 2 2.6 and then 23, and that was after 2 units of blood at 0530. Platelets were 417 on arrival and 252 at the time of my evaluation. Basic metabolic panel was remarkable for hypokalemia, otherwise nothin g else. ASSESSMENT AND PLAN: Gastrointestinal bleed, probably from her underlying tumor. GI has been consul monserrat to consider cautery for her, but Hospice may be the appropriate intervention at this time. I bel ieve Oncology has been contacted. I discussed this with the son in some detail today and suggested t hat we continue to follow her serial hematocrits and transfuse blood as necessary, but avoid more inv asive procedures, such as an EGD or vascular embolization procedures. He was comfortable with that a nd will await our additional consults from now. A total of 35 minutes of critical care time was required to evaluate this patient. /[id number]/MODL
[2018-01-19] MEDS: SUCRALFATE 1 GM/10 ML UDCUP PO SCH ×4 (06:08→19:49)
[2018-01-19] MEDS ORDERED: PROTOCOL POTASSIUM 1 DOSE MISC PRN (08:01)
[2018-01-19] MEDS: POTASSIUM Cl (KCl) 100 ML IV SCH ×6 (08:55→23:53)
--- NOTE | 2018-01-19 09:21 | SOAPPROG ---
SOAP Progress Note Assessment/Plan: Assessment: GIB stable post transfusion with out e/o rebleeding Poor candidate for therapeutic EGD as unlikely to provide effective endoscopic treatment for bleeding. Overall suspect bleeding has stopped for now. Discusses with son and pt yesterday they would like to avoid invasive procedures. Plan: Agree with supportive care Will sign off for now 01/19/18 09:18 Subjective: Cc blood in stools No further blood stools since admission. Patient c/o cough Objective: Vital Signs Temp Pulse Resp BP Pulse Ox 36.7 C 102 H 28 H 116/65 86 L 01/19/18 08:00 01/19/18 08:00 01/19/18 08:00 01/19/18 08:00 01/19/18 08:00 Laboratory Results 01/19/18 04:15 01/19/18 04:15 01/18/18 01/19/18 01/20/18 05:59 05:59 05:59 Intake Total 2100 1561 Output Total 150 400 Balance 1950 1161 PT 15.9 SEC (12.0-15.0) H 01/17/18 16:36 INR 1.25 (0.83-1.16) H 01/17/18 16:36 Physical Exam - Physical Exam Respiratory: rales Cardiac/Chest: regular rate, rhythm Abdomen: non-tender, soft ICD10 Worksheet Patient Problems: Problems Problem Status Onset Crohns disease Acute Hemorrhagic shock Acute Upper GI bleed Acute Anemia Active Hyponatremia Active Lower gastrointestinal hemorrhage Active Gastrointestinal hemorrhage Acute Periprosthetic fracture around internal prosthetic right hip joint Acute Severe anemia Acute
[2018-01-19] MEDS: ALBUTEROL 60 PUFFS/8 GM MDI IH PRN ×2 (10:48→16:49)
--- NOTE | 2018-01-19 11:56 | ASMTCMCOM ---
CM Note CM Note Notes: Pt is a 87 y/o female admitted for a upper gi bleed and critical anemia. Pt has a hx of stomach cancer and crohn's disease. Pt was previously living independently w/ a caregiver that comes in several times a week. Therapies have been ordered as well as palliative. Wound care is following as well. CM met w/ pt and son for dispo planning. Pt appears to have aspirated over the night and in respiratory failure. Pts son is interested in getting a palliative and hospice consult. CM spoke to Yajaira with [facility]. She is recommending a referral be made to [facility]. Referral sent. CM provided [facility] w/ pts son's phone number. CM notified [facility] w/ palliative care. CM to follow. Date Signed: 01/19/2018 11:56 AM Electronically Signed By:BONY Beltre
--- NOTE | 2018-01-19 12:19 | SOAPPROG ---
SOAP Progress Note Assessment/Plan: Assessment: 1. upper GI bleed 2. gastric cancer, unknown stage 3. respiratiory failure due to aspiration I spoke w/ pt's son who was at bedside. He confirmed that she has a diagnosis of gastric cancer, though did not recall another diagnostic procedure performed there, and the problem has been managed by her military technology specialist (Dr. Tucker) and she does not have an oncologist whom she sees regularly. Regardless, she has opted for palliative/supportive care alone and now is clinically declining due to aspiration. Son would like to pursue hospice, which seems very appropriate. Plan: - comfort measures - hospice - will sign off at this point. please call if there are additional questions that arise. 01/19/18 12:17 Subjective: pt had aspiration event overnight, currently in respiratory distress. Objective: exam: dyspneic. nonresponsive Vital Signs Temp Pulse Resp BP Pulse Ox 36.9 C 88 16 139/105 H 90 L 01/19/18 12:00 01/19/18 12:00 01/19/18 12:00 01/19/18 12:00 01/19/18 12:00 Laboratory Results 01/19/18 04:15 01/19/18 04:15 01/18/18 01/19/18 01/20/18 05:59 05:59 05:59 Intake Total 2100 1561 Output Total 150 400 Balance 1950 1161 PT 15.9 SEC (12.0-15.0) H 01/17/18 16:36 INR 1.25 (0.83-1.16) H 01/17/18 16:36 ICD10 Worksheet Patient Problems: Problems Problem Status Onset Crohns disease Acute Hemorrhagic shock Acute Upper GI bleed Acute Anemia Active Hyponatremia Active Lower gastrointestinal hemorrhage Active Gastrointestinal hemorrhage Acute Periprosthetic fracture around internal prosthetic right hip joint Acute Severe anemia Acute
[2018-01-19] MEDS ORDERED: IPRATROPIUM/ALBUTEROL 3 ML DEYVIAL ONE (15:56)
[2018-01-19] MEDS ORDERED: NS 1,000 ML IV SCH (16:45)
--- NOTE | 2018-01-19 18:04 | HOSPPROG ---
Hospitalist Progress Note Assessment/Plan: Gastric cancer- history of this is unclear as she gets her care at [facility]. Was scheduled for a CT abdomen today but this has been held at the sons request as they are thinking of moving towards hospice. Oncology has consulted, but with her diagnosis unclear has no defiinte recommendations. He does think that a hospice consultation would be appropriate in a 89 year old with likely gastric cancer. If patients family does decide to pursue treatment and not hospice we will reorder the Ct. Acute hypoxemic respiratory failure- requriing 5 liters. apparently aspirated last night. CXR with LLL infiltrate. PATIENT BILLER eval and patient not able to tolerate PO well. Will make NPO for now as she continues to aspirate. Need to clarify goals with son. Possible aspiration PNA/HAP- LLL infiltrate on CXR. meets criteria for HAP based on being here for 48 hours. Discussed with ID who feels that if patient is hospice should not give abx. Will start broad spectrum abx with vanc zosyn as son is not set on hospice yet. UGIB - GI consulted but bleeding currently has stopped. They recommend monitoring, if bleedin stopped discharge to follow up with GI/onc at [facility]. ABL anemia- recieved 3 units with good response. No longer with bleeding. Monitor H/H h/o Crohn's- not on treatment encephalopathy- presumed to be due to anemia, but at this point etiology unclear. Patient with new aspiration which confounds the picture. Will treat possible underlying infection, and monitor labs for now. PPX- SCDs, Fluids- low dose as she appears dry now. Lytes- WNL Nutrition- NPO Cor- DNR Dispo- inpatient for acute hypoxemic respiratory failure, anemia, gastric cancer. Subjective: patient repeatedly asking for something to drink. wants water. Objective: Vital Signs Temp Pulse Resp BP Pulse Ox 36.9 C 95 12 104/89 H 98 01/19/18 16:00 01/19/18 16:00 01/19/18 16:00 01/19/18 16:00 01/19/18 16:00 Laboratory Results 01/19/18 12:55 01/19/18 04:15 01/18/18 01/19/18 01/20/18 05:59 05:59 05:59 Intake Total 2100 1561 Output Total 150 400 Balance 1950 1161 PT 15.9 SEC (12.0-15.0) H 01/17/18 16:36 INR 1.25 (0.83-1.16) H 01/17/18 16:36 - Physical Exam Constitutional: uncomfortable Eyes: PERRL, anicteric sclera, EOMI Ears, Nose, Mouth, Throat: dry mucous membranes Cardiovascular: tachycardia Respiratory: inspiratory crackles Gastrointestinal: soft, non-tender abdomen Genitourinary: no bladder fullness, no bladder tenderness, no renal bruits Skin: no rashes or abrasions, no fluctuance, no induration Musculoskeletal: generalized weakness Neurologic: other (repeats that she wants water. not able to assess) Psychiatric: agitated ICD10 Worksheet Patient Problems: Problems Problem Status Onset Crohns disease Acute Hemorrhagic shock Acute Upper GI bleed Acute Anemia Active Hyponatremia Active Lower gastrointestinal hemorrhage Active Gastrointestinal hemorrhage Acute Periprosthetic fracture around internal prosthetic right hip joint Acute Severe anemia Acute
[2018-01-19] MEDS ORDERED: CLINDAMYCIN 900 MG/DEXTROSE 50 ML IV SCH (22:00)
[2018-01-19] MEDS: CLINDAMYCIN 600 MG/DEXTROSE 50 ML IV SCH (23:15)
[2018-01-20] MEDS: IPRATROPIUM/ALBUTEROL 3 ML DEYVIAL IH PRN ×2 (00:21→05:55)
[2018-01-20] MEDS: PANTOPRAZOLE SODIUM 40 MG VIAL IVP SCH ×5 (01:15→23:57)
[2018-01-20] MEDS: POTASSIUM Cl (KCl) 100 ML IV SCH ×2 (02:11→03:33)
[2018-01-20] MEDS: SUCRALFATE 1 GM/10 ML UDCUP PO SCH ×4 (05:14→20:11)
[2018-01-20] MEDS: CLINDAMYCIN 600 MG/DEXTROSE 50 ML IV SCH ×2 (05:45→13:31)
[2018-01-20] MEDS: ALBUTEROL 60 PUFFS/8 GM MDI IH PRN ×4 (11:42→21:29)
--- NOTE | 2018-01-20 16:02 | HOSPPROG ---
Hospitalist Progress Note Assessment/Plan: Gastric cancer- I reviewed an endoscopy report with her daughter that revealed a large ulcerated mass in her stomach from October, that was found to be cancerous. They never followed up with oncology because they and the patient never wanted to pursue treatment. They have decided that they do not want any aggressive interventions and their goal is to get their mom strong enough to go home to enjoy the time she has left. will not pursue any further diagnostic testing. Acute hypoxemic respiratory failure- was requiring up to 7 liters last night, now down to room air miraculously. RT performed deep suction and she was started on clinda for aspiration PNA. Possible aspiration PNA/HAP- started on clindamycin for aspiration yesterday due to extensive list of allergies. she seems to have substantially improved and may have just had an aspiration pneumonitis. No Leukocytosis was ever noted and she has not had any fevers, or other suggestions of infection. Will dc clinda given the risk of c diff. UGIB - GI consulted but bleeding currently has stopped. They recommend monitoring, if bleedin stopped discharge to follow up with GI/onc at [facility]. ABL anemia- recieved 3 units with good response. No longer with bleeding. Monitor H/H h/o Crohn's- not on treatment encephalopathy- presumed to be due to anemia, but at this point etiology unclear. seems to have resolved now. PPX- SCDs, Fluids-PO and low dose IV Lytes- WNL Nutrition- passed swallow today. advanced to think liquids and regular diet. Cor- DNR Dispo- inpatient for gi bleed, aspiration. will likely need SNF. will discuss with CM. Objective: Vital Signs Temp Pulse Resp BP Pulse Ox 36.9 C 82 18 145/59 H 95 01/20/18 14:59 01/20/18 14:59 01/20/18 14:59 01/20/18 14:59 01/20/18 14:59 Laboratory Results 01/19/18 12:55 01/19/18 20:55 01/19/18 01/20/18 01/21/18 05:59 05:59 05:59 Intake Total 1561 350 Output Total 400 252 Balance 1161 98 PT 15.9 SEC (12.0-15.0) H 01/17/18 16:36 INR 1.25 (0.83-1.16) H 01/17/18 16:36 - Physical Exam Constitutional: no apparent distress, appears nourished, not in pain Eyes: PERRL, anicteric sclera, EOMI Ears, Nose, Mouth, Throat: moist mucous membranes, hearing normal, ears appear normal, no oral mucosal ulcers Cardiovascular: regular rate and rhythym, no murmur, rub, or gallop Respiratory: no respiratory distress, no rales or rhonchi, clear to auscultation Gastrointestinal: normoactive bowel sounds, soft, non-tender abdomen, no palpable masses Genitourinary: no bladder fullness, no bladder tenderness, no renal bruits Skin: no rashes or abrasions, no fluctuance, no induration Musculoskeletal: full muscle strength, no muscle tenderness, normal joint ROM Neurologic: AAOx3, sensation intact bilaterally Psychiatric: interacting appropriately, not anxious, not encephalopathic, thought process linear Lymph, Heme, Immunologic: no cervical LAD, no supraclavicular LAD ICD10 Worksheet Patient Problems: Problems Problem Status Onset Crohns disease Acute Hemorrhagic shock Acute Upper GI bleed Acute Anemia Active Hyponatremia Active Lower gastrointestinal hemorrhage Active Gastrointestinal hemorrhage Acute Periprosthetic fracture around internal prosthetic right hip joint Acute Severe anemia Acute
--- NOTE | 2018-01-20 16:59 | ASMTCMCOM ---
CM Note CM Note Notes: Kathi from [facility] hospice [phone], came out again to speak with family. Pt is doing better and today she no longer qualifies for [facility]. Family would like pt to go to rehab, she is [facility] and was at [facility] before. CM will send referral to [facility] for SNF approval. Kathi at [facility] will f/u with family on Monday for any changes. DC Plan: SNF Date Signed: 01/20/2018 04:58 PM Electronically Signed By:Yaz Cm RN
[2018-01-20] MEDS: NS 1,000 ML IV SCH (17:42)
[2018-01-20] MEDS: CALCIUM CARBONATE 500 MG CHEWABLE TAB PO PRN (20:11)
[2018-01-21] MEDS: MELATONIN 3 MG TAB PO SCH ×2 (00:02→19:31)
[2018-01-21] MEDS: ALBUTEROL 60 PUFFS/8 GM MDI IH PRN (00:44)
[2018-01-21] MEDS: IPRATROPIUM/ALBUTEROL 3 ML DEYVIAL IH PRN ×4 (04:38→21:48)
[2018-01-21] MEDS: PANTOPRAZOLE SODIUM 40 MG VIAL IVP SCH ×3 (06:41→18:26)
[2018-01-21] MEDS: SUCRALFATE 1 GM/10 ML UDCUP PO SCH ×4 (06:42→19:31)
[2018-01-21 06:45] LABS: PLATELET COUNT 166 10^3/uL (150-400)
[2018-01-21] MEDS: NS 1,000 ML IV SCH (07:33)
[2018-01-21] MEDS ORDERED: POTASSIUM CL 10 MEQ TAB PO ONE (11:14)
[2018-01-21] MEDS ORDERED: hydrALAZINE 20 MG/ML VIAL IVP PRN (13:57)
--- NOTE | 2018-01-21 15:49 | HOSPPROG ---
Hospitalist Progress Note Assessment/Plan: 87 year old female with pmh of gastric cancer, multiple GI bleeds, admitted with acute GI bleed which spontaneously resolved. Gastric cancer- I reviewed an endoscopy report with her daughter that revealed a large ulcerated mass in her stomach from October, that was found to be cancerous. They never followed up with oncology because they and the patient never wanted to pursue treatment. They have decided that they do not want any aggressive interventions and their goal is to get their mom strong enough to go home to enjoy the time she has left. will not pursue any further diagnostic testing. Acute hypoxemic respiratory failure-miraculously resolved, patient was requiring up to 7 liters two days ago, but over the last day wtih RT have been able to drop back down. Possible aspiration PNA/HAP- started on clindamycin for aspiration yesterday due to extensive list of allergies. she seems to have substantially improved and may have just had an aspiration pneumonitis. clinda stopped as patient not clinically with PNA and respiration dramatically improved. Keep aspiration precautions in place and monitor for infection UGIB - GI consulted but bleeding currently has stopped. They recommend monitoring, if bleedin stopped discharge to follow up with GI/onc at [facility]. ABL anemia- recieved 3 units with good response. No longer with bleeding. Monitor H/H h/o Crohn's- not on treatment PPX- SCDs, Fluids-PO and low dose IV Lytes- WNL Nutrition- passed swallow today. advanced to think liquids and regular diet. Cor- DNR Dispo- PT/OT saying patient will need 24 hour care, but [facility] denied SNF. Will need 24 hour care per PT/OT assessment but family not willing to pay. Will discuss plan in am with family Objective: Vital Signs Temp Pulse Resp BP Pulse Ox 36.3 C 88 16 175/95 H 96 01/21/18 07:28 01/21/18 13:30 01/21/18 13:30 01/21/18 14:01 01/21/18 13:30 Laboratory Results 01/21/18 04:58 01/21/18 04:58 01/20/18 01/21/18 01/22/18 05:59 05:59 05:59 Intake Total 350 1800 Output Total 252 575 Balance 98 1225 PT 15.9 SEC (12.0-15.0) H 01/17/18 16:36 INR 1.25 (0.83-1.16) H 01/17/18 16:36 - Physical Exam Constitutional: no apparent distress, appears nourished, not in pain Eyes: PERRL, anicteric sclera, EOMI Ears, Nose, Mouth, Throat: moist mucous membranes, hearing normal, ears appear normal, no oral mucosal ulcers Cardiovascular: regular rate and rhythym, no murmur, rub, or gallop Respiratory: reduced air movement, expiratory wheeze Gastrointestinal: normoactive bowel sounds, soft, non-tender abdomen, no palpable masses Genitourinary: no bladder fullness, no bladder tenderness, no renal bruits Skin: no rashes or abrasions, no fluctuance, no induration Musculoskeletal: full muscle strength, no muscle tenderness, normal joint ROM Neurologic: AAOx3, sensation intact bilaterally Psychiatric: interacting appropriately, not anxious, not encephalopathic, thought process linear Lymph, Heme, Immunologic: no cervical LAD, no supraclavicular LAD ICD10 Worksheet Patient Problems: Problems Problem Status Onset Crohns disease Acute Hemorrhagic shock Acute Upper GI bleed Acute Anemia Active Hyponatremia Active Lower gastrointestinal hemorrhage Active Gastrointestinal hemorrhage Acute Periprosthetic fracture around internal prosthetic right hip joint Acute Severe anemia Acute
[2018-01-21] MEDS: ACETAMINOPHEN 325 MG TAB PO PRN (16:37)
[2018-01-21] MEDS: CALCIUM CARBONATE 500 MG CHEWABLE TAB PO PRN (19:30)
[2018-01-21] MEDS: POTASSIUM Cl (KCl) 100 ML IV SCH (22:35)
[2018-01-22] MEDS: PANTOPRAZOLE SODIUM 40 MG VIAL IVP SCH ×2 (00:12→05:30)
[2018-01-22] MEDS: POTASSIUM Cl (KCl) 100 ML IV SCH ×5 (00:12→10:17)
[2018-01-22] MEDS: ALBUTEROL 60 PUFFS/8 GM MDI IH PRN ×4 (01:09→14:47)
[2018-01-22] MEDS: IPRATROPIUM/ALBUTEROL 3 ML DEYVIAL IH PRN ×2 (04:54→09:43)
[2018-01-22] MEDS: SUCRALFATE 1 GM/10 ML UDCUP PO SCH ×3 (04:59→15:39)
[2018-01-22 05:26] LABS: PLATELET COUNT 158 10^3/uL (150-400)
[2018-01-22] MEDS: NS 1,000 ML IV SCH (05:27)
[2018-01-22] MEDS ORDERED: PANTOPRAZOLE SODIUM 40 MG TAB PO SCH (09:15)
--- NOTE | 2018-01-22 09:22 | HOSPPROG ---
Hospitalist Progress Note Assessment/Plan: 87 year old female with pmh of gastric cancer, multiple GI bleeds, admitted with acute GI bleed which spontaneously resolved. Gastric cancer-has declined specific therapy for this Acute hypoxemic respiratory failure-remains intermittently on 02 on MDI exam appears c/w mild obstructive disease Possible aspiration PNA/HAP- started on clindamycin for aspirationdue to extensive list of allergies. she seems to have substantially improved and may have just had an aspiration pneumonitis. clinda stopped as patient not clinically with PNA and respiration dramatically improved. Keep aspiration precautions in place and monitor for infection UGIB - GI consulted but bleeding currently has stopped. declines endoscopy transfuse as needed ABL anemia- recieved 3 units with good response. No longer with bleeding. Monitor H/H h/o Crohn's- not on treatment PPX- SCDs, Fluids-PO and low dose IV Lytes- WNL Nutrition- passed swallow today. advanced to think liquids and regular diet. Cor- DNR Dispo- PT/OT saying patient will need 24 hour care, but [facility] denied SNF. will d/w [facility] today Subjective: per pt, still w melena. anxious to leave Objective: Vital Signs Temp Pulse Resp BP Pulse Ox 37.0 C 85 22 H 165/88 H 95 01/22/18 07:26 01/22/18 07:54 01/22/18 07:26 01/22/18 07:54 01/22/18 07:54 Laboratory Results 01/22/18 04:57 01/22/18 04:57 01/21/18 01/22/18 01/23/18 05:59 05:59 05:59 Intake Total 1800 1200 Output Total 575 300 Balance 1225 900 PT 15.9 SEC (12.0-15.0) H 01/17/18 16:36 INR 1.25 (0.83-1.16) H 01/17/18 16:36 - Physical Exam Constitutional: no apparent distress, appears nourished Eyes: PERRL, anicteric sclera Ears, Nose, Mouth, Throat: moist mucous membranes, hearing normal Cardiovascular: regular rate and rhythym, no murmur, rub, or gallop, tachycardia Respiratory: no respiratory distress, no rales or rhonchi Gastrointestinal: normoactive bowel sounds, soft, non-tender abdomen Genitourinary: no bladder fullness, No quinteros in urethra Skin: warm, normal color Musculoskeletal: No full muscle strength Neurologic: AAOx3 Psychiatric: interacting appropriately ICD10 Worksheet Patient Problems: Problems Problem Status Onset Crohns disease Acute Hemorrhagic shock Acute Upper GI bleed Acute Anemia Active Hyponatremia Active Lower gastrointestinal hemorrhage Active Gastrointestinal hemorrhage Acute Periprosthetic fracture around internal prosthetic right hip joint Acute Severe anemia Acute
[2018-01-22] MEDS: ACETAMINOPHEN 325 MG TAB PO PRN (14:14)
--- NOTE | 2018-01-22 14:22 | ASMTCMCOM ---
CM Note CM Note Notes: CM received response from [facility] denying SNF placement and offering to arrange a doc to doc Monday. CM updated RN and medical provider. CM to respond to [facility] auth with updated PT eval recommending SNF and will request info to arrange doc to doc. Dr. Espinosa informed family. CM to follow. Plan: SNF vs. Home vs. Hospice Date Signed: 01/21/2018 03:38 PM Electronically Signed By:Sharron Jauregui
--- NOTE | 2018-01-22 14:44 | PDIAF ---
- Diagnosis Diagnosis: UGIB Code Status: Do Not Resuscitate - Medication Management Discharge Medications: electronically signed and located in the Home Medication List. - Orders Services needed: Registered Nurse, Certified Hotel Maintenance Engineer, Physical Therapy, Occupational Therapy Isolation Type: None Diet Texture: Dysphagia 1 - Pureed, Honey Thick Liquids, Meds Crushed in Puree - Follow Up Care Current Providers and Referrals: DIVYA STACY [Other]
--- NOTE | 2018-01-22 15:10 | ASMTLACE ---
LACE Length of stay for Answers: 4-6 days current admission Acuity / Level of Answers: Yes Care: Did the patient have an inpatient admission? Comorbidities - select Answers: Any tumor (including all that apply lymphoma or leukemia) Chronic pulmonary disease Other Notes: Crohn's disease # of Emergency department Answers: 1-2 visits in the last 6 months Score: 13 Date Signed: 01/22/2018 03:09 PM Electronically Signed By:BONY Beltre
--- NOTE | 2018-01-22 15:13 | ASMTDCNOTE ---
Case Management Discharge Discharge Order Complete? Answers: Yes Patient to Obtain Answers: Other Notes: [facility] SNF Medications Transportation Arranged Answers: [facility] W/C Transport will Pick (Date 01/22/2018 05:30 PM & Time) EMTALA Complete Answers: No Case Management Transport Answers: No Form Complete Faxed Final Orders Answers: Yes Agency/Facility Transfer Answers: Yes Report Printed & Faxed to Receiving Agency Family Notified Answers: Yes Discharge Comments Notes: Pts case discussed w/ Dr. Schumacher and [facility]. Dr. Schumacher completed peer to peer w/ the [place] doctor. [facility] is approving SNF stay. [facility]. [facility]. CM notified pts family of the d/c. [place] will call to give report. CM available for changes. Plan: [facility] Date Signed: 01/22/2018 03:12 PM Electronically Signed By:BONY Beltre
--- NOTE | 2018-01-22 15:34 | PDIAF ---
- Diagnosis Diagnosis: UGIB Code Status: Do Not Resuscitate - Medication Management Discharge Medications: electronically signed and located in the Home Medication List. - Orders Services needed: Registered Nurse, Certified Penal Officer, Physical Therapy, Occupational Therapy Isolation Type: None Diet Recommendation: no restrictions on diet - Follow Up Care Current Providers and Referrals: DIVYA STACY [Other]
--- NOTE | 2018-01-22 15:41 | GDS ---
DISCHARGE DIAGNOSES: 1. Upper gastrointestinal bleed secondary to gastrointestinal cancer. No scope performed during thi s admission. 2. Acute blood loss anemia status post 3 units of blood. 3. History of gastric cancer. 4. Chronic obstructive pulmonary disease on home oxygen. 5. Chronic hypoxemic with respiratory failure. 6. Crohn disease. 7. Parkinson's. 8. Encephalopathy, now resolved. Please see admission history and physical by Dr. Gracy Albert. The patient presented with melena. She was found to be markedly anemic and confused. She had a hemoglobin of 3.6 on presentation. She received 3 units of packed cells with good improvem ent in her hematocrit. Hemoglobin is 8.1 at the time of discharge. She was started on twice daily P PI and sucralfate. She was seen by Critical Care, Gastroenterology and Oncology. She gets her prima ry care in the [facility], so we did not have a ton of records on her. She declined scope. She w ishes for symptomatic management. She was seen by PT and OT who felt that she was appropriate for shelter facilities. She is c urrently living independently and wishes to continue to do so, making this an appropriate goal. She is discharged home on unchanged medication regimen, which includes sucralfate and PPI. She is discha rged to [facility]. She is do not resuscitate. /[id number]/MODL
[2018-01-22 16:02] VITALS: BP 165/95
== END 2018-01-22 17:07 | DRG 377 ==
LOC: EDUNIT# → F2N 17:52 → F3E 01-18 16:02
PROVIDERS: ADMIT Internal Medicine; ATTEND Internal Medicine
PROC: 30233P1 Transfusion of Nonautologous Frozen Red Cells into Peripheral Vein, Percutaneous Approach (ICD-10-PCS; principal; 2018-01-17)
DX: K92.2 Gastrointestinal hemorrhage, unspecified (principal); G93.41 Metabolic encephalopathy; C16.9 Malignant neoplasm of stomach, unspecified; K50.90 Crohn's disease, unspecified, without complications; J96.11 Chronic respiratory failure with hypoxia; D50.0 Iron deficiency anemia secondary to blood loss (chronic); L89.152 Pressure ulcer of sacral region, stage 2; J44.9 Chronic obstructive pulmonary disease, unspecified; G20 Parkinson's disease; Z66 Do not resuscitate; Z72.0 Tobacco use
CPT/HCPCS: 82435-PO; 82565-PO; 82947-PO; 84132-PO; 84295-PO; 84520-PO; 85014-PO; 92526-GN; 92610-GN; 96374; 97116-GP; 97162-GP; 97166-GO; 97530-GP; G8978-GP-CL; G8979-GP-CJ; J0360; J1940; J3480; P9016; P9021; Q9967